=== PATIENT | female | born 1975 | race Caucasian/White ===

== ENCOUNTER → 2024-05-24 06:51 | Outpatient (REF) | payer OTHER, SELFPAY | LOC: HWWDC 06:51 | PROVIDERS: ATTENDING PHYSICIAN Internal Medicine; REFERRING PHYSICIAN Obstetrics & Gynecology | DX: D25.9 Leiomyoma of uterus, unspecified (principal); Z12.31 Encounter for screening mammogram for malignant neoplasm of breast | CPT/HCPCS: 77063; 77067 ==

== ENCOUNTER → 2024-06-04 14:41 | Outpatient (REF) | payer OTHER, SELFPAY | LOC: HWRAD 14:41 | PROVIDERS: ATTENDING PHYSICIAN Internal Medicine | DX: R10.11 Right upper quadrant pain (principal); R07.81 Pleurodynia | CPT/HCPCS: 76700 ==

== ENCOUNTER 2024-07-10 19:48 | Inpatient (IN) | payer OTHER, SELFPAY ==
[2024-07-10 14:00] VITALS: BP 158/95
[2024-07-10 14:32] LABS: % Basophils 0.6 % (0-2); % Eosinophils 0.6 % (0-6); % Immature Granulocytes 0.3 % (0-0.5); % Lymphocytes 10.7 % (20.5-51.1); % Monocytes 7.7 % (1.7-9.3); % Neutrophils 80.1 % (42.2-75.2); Absolute Lymphocytes 0.8 10^3/uL (1.2-3.4); Absolute Monocytes 0.6 10^3/uL (0.1-0.6); Absolute Neutrophils 5.7 10^3/uL (1.4-6.5); Hematocrit 40.6 % (37.0-47.0); Hemoglobin 14.2 g/dL (12.0-16.0); Mean Corpuscular Hgb 31.2 pg (27.0-31.0); Mean Corpuscular Volume 89.2 fL (81.0-99.0); Mean Platelet Volume 11.1 fL (7.4-10.4); Nucleated Red Blood Cells % 0 %; Platelet Count 236 10^3/uL (130-400); Red Blood Cell Count 4.55 10^6/uL (4.20-5.40); Red Cell Dist. Width 14.4 % (11.5-14.5); White Blood Cell Count 7.1 10^3/uL (4.8-10.8)
[2024-07-10 14:47] LABS: Albumin 4.1 g/dl (3.5-5.0); Alkaline Phosphatase 233 U/L (38-126); Blood Urea Nitrogen 10 mg/dl (7-17); Carbon Dioxide 26 mmol/L (22-30); Chloride 100 mmol/L (98-107); Glucose 147 mg/dl (70-99); Lipase 33 U/L (23-300); Potassium 3.3 mmol/L (3.5-5.1); Sodium 136 mmol/L (135-145); Total Bilirubin 12.2 mg/dl (0.2-1.3); Total Protein 7.9 g/dl (6.3-8.2); eGFR > 60.00
[2024-07-10 14:59] LABS: HCG, Serum Qualitative Screen Negative
[2024-07-10 15:12] LABS: ALT (SGPT) 1065 U/L (0-35)
[2024-07-10 15:39] LABS: AST (SGOT) 1416 U/L (14-36)
[2024-07-10 15:49] VITALS: BP 148/105
[2024-07-10 15:51] VITALS: BMI 29.0
[2024-07-10 16:00] VITALS: BP 142/102
--- NOTE | 2024-07-10 16:00 | ED.GENMED ---
History of Present Illness
General
Chief Complaint: Abdominal Symptoms
Time Seen by Provider: 07/10/24 15:48
History of Present Illness
History of Present Illness:
Patient is a 49-year-old woman presenting to the emergency department with abdominal pain and jaundice. Patient states that about a month ago she developed right upper quadrant pain and had ultrasound that was normal. Since then she has been
having ongoing abdominal pain nausea occasional vomiting. She has had significantly decreased p.o. with associated belching. She notes that for the past few days her urine has been darker. This morning she woke up and she noticed that her eyes
were jaundice and her skin was slightly jaundiced as well. Patient does state that about 2 weeks ago she had a head cold and was taking Tylenol with pseudoephedrine 2 pills every 6 hours. She then transition to Advil cold sinus. A few days ago
she went to her primary care doctor with ongoing dizziness nausea who prescribed her Zofran as well as Antivert however patient did not take any medications. She denies any recent travel antibiotics or other medications. No history of IV drug use.
No history of abnormal LFTs.
Past History
Past History
ED Past Medical History: Hypothyroidism
ED Past Surgical History: None
Social History
Tobacco: Non-smoker
Alcohol: None
Drug: None
Personal:
Living: with family
Employment: Employed
Family History
Family History: Other (Grandmother with [facility] in her late 50s dad with hypertension)
Phy Exam
Physical Exam
Physical Exam:
GENERAL: in no acute distress, jaundiced
HEENT: normocephalic, extraocular movements intact, scleral icterus, moist oral mucosa
NECK: normal inspection
RESPIRATORY: no respiratory distress, clear to auscultation bilaterally
CARDIOVASCULAR: regular rate and rhythm
ABDOMEN/: soft, non-distended, right upper quadrant tenderness to palpation, no rebound or guarding
EXTREMITIES: non-tender, no edema/swelling
NEUROLOGIC: awake and alert, moves all extremities
SKIN: warm
Course
Orders/Labs/Results
Orders:
Orders
07/10/24 14:04
Test Result ONCE
07/10/24 14:13
Acetaminophen Urgent
Comment: ADD ON
Complete Blood Count/With Diff Urgent
Comprehensive Metabolic Panel Urgent
Direct Bilirubin Urgent
Comment: ADD ON
HCG, Serum Qualitative Screen Urgent
Comment: Notify provider if positive test present
Lipase Urgent
07/10/24 15:48
Add On- LAB Urgent
Tests Added?: direct billirubin
07/10/24 16:00
Add On- LAB Urgent
Tests Added?: tylenol level, hepatitis panel
CT Abd/pelvis W Iv Cont Urgent
Comment:
Reason For Exam: abnormal lft, RUQ pain
07/10/24 16:06
Urinalysis Reflex To Culture Urgent
Date Specimen was Collected: 07/10/24
Time Specimen was Collected: 16:05
Urine Microscopic Reflex Cult Urgent
Urine Culture Urgent
[place] Source: U
Specimen Description:
Date Specimen was Collected: 07/10/24
Time Specimen was Collected: 16:05
07/10/24 18:01
Ondansetron Injectable [Zofran] 4 mg .ROUTE .STK-MED ONE
07/10/24 18:03
Ondansetron Injectable [Zofran] 4 mg IV NOW STA
Abnormal Lab Results
07/10/24 07/10/24
14:13 16:06
MCH 31.2 H pg
(27.0-31.0)
MPV 11.1 H fL
(7.4-10.4)
Absolute Lymphs (auto) 0.8 L 10^3/uL
(1.2-3.4)
Neutrophils % 80.1 H %
(42.2-75.2)
Lymphocytes % 10.7 L %
(20.5-51.1)
Potassium 3.3 L mmol/L
(3.5-5.1)
Creatinine 0.5 L mg/dL
(0.6-1.0)
Glucose 147 H mg/dl
(70-99)
Total Bilirubin 12.2 H mg/dl
(0.2-1.3)
AST 1416 H* U/L
(14-36)
ALT 1065 H* U/L
(0-35)
Alkaline Phosphatase 233 H U/L
(38-126)
Urine Ketones 1+ A
(Negative)
Ur Occult Blood Reflex 2+ A
(Negative)
Urine Nitrite (Reflex) Positive A
(Negative)
Urine Bilirubin 3+ A
(Negative)
Urine Urobilinogen 3+ A
(Neg - 1+)
Leukocyte Esterase Rfl Trace A
(Negative)
Urine RBC 3-6 A /HPF
(0-2)
Urine Bacteria (Reflex) Many A
(Negative)
07/10/24 14:13
07/10/24 14:13
Vital Signs
Initial and Last Documented VS:
Initial Vital Signs
Temp Pulse Resp BP Pulse Ox
97.9 F 117 18 158/95 97
07/10/24 14:00 07/10/24 14:00 07/10/24 14:00 07/10/24 14:00 07/10/24 14:00
Last Documented Vital Signs
Temp Pulse Resp BP Pulse Ox
97.9 F 117 18 140/99 99
07/10/24 14:00 07/10/24 14:00 07/10/24 14:00 07/10/24 18:00 07/10/24 18:00
MDM/Problems Addressed
Differential Diagnosis Includes:
Patient is a 49-year-old woman presenting to the emergency department with abdominal pain nausea and new jaundice. Vitals unremarkable on exam patient is jaundice with right upper quadrant abdominal pain. Concern for obstructive processes causing
the jaundice versus Tylenol toxicity. Blood work obtained prior to elevation does show significant transaminitis as well as elevated total bilirubin. Will add on direct bilirubin, Tylenol level, hepatitis panel. I did review prior ultrasound on
June 04 which was unremarkable. Given that the ultrasound was normal we will proceed with CT scan.
*Critical Care Note
Total Time (30-74mins, 75-104mins- exclusive of procedures): Not Applicable
Update Note
Update Note:
Multiple hours later add on labs have not been back. I did call lab which states they have been working on it. CT scan with no acute findings. Discussed with hospitalist who accepted patient to their service pending add on labs
ED Attending Note
-
Portions of this chart may have been created with voice recognition software.� Occasional wrong word or��sound alike� substitutions may have occurred due to the inherent limitations of voice recognition software.
Discharge Plan
Departure
Patient Disposition: Admit
Date of Disposition: 07/10/24
Time of Disposition: 19:00
Presentation/result/management discussed w/ accepting MD/DO: Hospitalist
Discharge Problem:
Transaminitis, Jaundice
Prescriptions:
No Action
levothyroxine 112 MCG tablet
112 mcg PO DAILY AT 0700
hydrocodone-acetaminophen 1 TABLET tablet
1 - 2 tab PO Q4HPRN PRN (Reason: pain) Qty: 20 0RF
Referrals:
Steffanie Moore MD [Primary Care Provider] -
Interventions
Interventions:
*Risk Screen - Suicide Last Done: 07/10/24 15:52
*General Assessment Last Done: 07/10/24 15:52
*Neglect/Abuse Screening Last Done: 07/10/24 15:52
ED- Fall Risk Assessment Last Done: 07/10/24 15:52
*ED COVID-19 Vaccine History Last Done: 07/10/24 14:03
UG-Cocqfr-Fohztmnrdv Assessment Last Done: 07/10/24 15:52
Discharge Date and Time
Print Language: ANGUILLAN
[2024-07-10 16:23] LABS: Urine Albumin Trace (Neg - Trace); Urine Bilirubin 3+ (Negative); Urine Character Clear (Clear); Urine Color Amber; Urine Glucose Negative (Negative); Urine Ketone 1+ (Negative); Urine Leukocyte Trace (Negative); Urine Nitrite Positive (Negative); Urine Occult Blood 2+ (Negative); Urine Specific Gravity 1.025 (<1.030); Urine Urobilinogen 3+ (Neg - 1+)
[2024-07-10 16:31] LABS: Urine Mucus Moderate; Urine Squamous Cell 16-20 /LPF (Few)
[2024-07-10 16:32] LABS: Urine Urothelial Cell 0-2 /LPF (FEW)
[2024-07-10 16:33] LABS: Urine Bacteria Many (Negative)
[2024-07-10 18:00] VITALS: BP 140/99
[2024-07-10] MEDS: ZOFRAN 4 MG IV (18:03)
[2024-07-10 19:00] VITALS: BP 132/84
[2024-07-10 19:01] LABS: Acetaminophen < 10 ug/ml (10-30); Direct Bilirubin 9.5 mg/dl (0.0-0.4)
--- NOTE | 2024-07-10 19:21 | HPS.HSE ---
Family Physician
-
Family Physician: Steffanie Moore
Chief Complaint
-
Jaundiced nausea
History of Present Illness
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
department with elevated liver enzymes and nausea.
Patient reported that she was having headache and abdominal symptoms about 3 weeks ago. She started taking Tylenol cold and sinus hxtztk-zwq-rteyg every 5 hours for at least 5 days. She then developed severe nausea without vomiting and then
stopped taking the Tylenol. She started taking ibuprofen cold which appeared to help her symptoms. Then she appeared to develop some reflux symptoms. Despite this she continued to have right upper quadrant abdominal discomfort and nausea. She was
seen by outpatient physician for the right upper quadrant discomfort and had a ultrasound which was negative.
Following that patient's family started noticing that she had a discoloration to her skin denies and requested that she go to the emergency department for evaluation. Patient tells me that her last use of Tylenol was over 5 days ago and probably
last week. She denies any other medications. She denies alcohol use. She denies any history of gallstones. She has no recent travels or sick contacts.
In the emergency department she was afebrile, she was hemodynamically stable and in no acute distress but anxious. Blood pressure was 140/90 pulse 117 respiratory rate 18. CBC was normal. Electrolytes and BUN/creatinine were within the normal
range. Total bilirubin was 12.5 direct 9.5 AST 1400 AST [address] of the abdomen and pelvis shows no acute findings.
Medical History
Past Medical History
Past Medical History: Reports Hypothyroidism
Past Surgical History: Reports Appendectomy
Social History
Tobacco: Non-smoker
Alcohol: None
Drug: None
Personal: Partner
Living: With Family
Employment: Employed
Family History
Family History: Not pertinent
Allergies / Home Medications
Allergies reflects when Allergies were last updated in [employer].
Home Medications with original date entered in [employer]
Allergy/Medication List:
Allergies
Allergy/AdvReac Type Severity Reaction Status Date / Time
Sulfa (Sulfonamide Allergy Unknown Verified 09/15/18 23:16
Antibiotics)
seasonal allergies Allergy Mild Unknown Uncoded 09/16/18 04:35
Home Medications
levothyroxine 88 mcg tablet 88 mcg PO DAILY 07/10/24
Review of Systems
-
History Source: Patient
Constitutional: Reports No Symptoms
EENT: Reports No Symptoms
Respiratory: Reports No Symptoms
Cardiac: Reports No Symptoms
Abdomen/GI: Reports Abdominal Pain and Nausea
: Reports No Symptoms
Musculoskeletal: Reports No Symptoms
Skin: Reports No Symptoms
Neurological: Reports No Symptoms
Endocrine: Reports No Symptoms
Hematologic/Lymphatic: Reports No Symptoms
Psych: Reports No Symptoms
Physical Exam
Vital Signs
Vital Signs
Temp Pulse Resp BP Pulse Ox
97.9 F 117 18 140/99 99
07/10/24 14:00 07/10/24 14:00 07/10/24 14:00 07/10/24 18:00 07/10/24 18:00
Physical Exam
General: Well Developed, Well Nourished, No Apparent Distress and Comfortable
HEENT: NormoCephalic, Anicteric, Moist mucous membranes and Atraumatic
Respiratory: Clear
Cardiac: S1/S2 and Tachycardia
GI: Soft, Non Distended and Normal Bowel Sounds
Rectal: Deferred by Provider
Genito-urinary: Deferred by me
Musculoskeletal: No Clubbing, No Cyanosis and No Edema
Skin: Warm
Neuro: AO x 3
Hematologic/Lymphatic: No Lymphadenopathy
Psych: Anxious
Laboratory Results
-
12/25/24 14:13
07/10/24 14:13
Laboratory Results
Total Bilirubin 12.2 mg/dl (0.2-1.3) H 07/10/24 14:13
AST 1416 U/L (14-36) H* 07/10/24 14:13
ALT 1065 U/L (0-35) H* 07/10/24 14:13
Alkaline Phosphatase 233 U/L (38-126) H 07/10/24 14:13
Lipase 33 U/L (23-300) 07/10/24 14:13
Data Reviewed
-
CT Scan: Report Reviewed by me
Lab Data: Labs Reviewed by me
Old Records: Reviewed
Impression/Plan
-
IMPRESSION:
49 F w/ h/o hypothyroidism presenting to ED with acute episode of painless jaundice and transaminitis. Recent history of heavy tylenol use but stopped taking tylenol 1 week ago and levels are negative today. No ETOH, no gallstones. CTAP shows no
abnormalities. No evidence of cirrhosis. No other meds.
PLAN:
1. Liver injury - suspect subacute tylenol injury versus coincidental development of viral or autoimmune hepatitis.
- admit to med/surg
- check acute viral hepatitis
- check JCARLOS, anti-mitochondrial ab, ESR
- check pt/inr and ammonia and trend lft
- GI consultation
2. Hypothyroid
- continue levothyroxine
DVT PPX - lovenox
Code Status - Full Code
[2024-07-10 22:00] VITALS: BMI 27.8
[2024-07-10 23:15] VITALS: BP 149/88
[2024-07-10] MEDS: MOTRIN 400 MG PO (23:44)
--- NOTE | 2024-07-11 00:05 | PTCARENOTE ---
Patient arrived to unit from ED via stretcher. Patient safely ambulated into room 317-1 on . Patient AAOx3 and able to make needs known. Patient anxious about current health conditions, 1:1 emotional support provided. Oriented to unit. Call
sanders within reach. Plan of care ongoing.
[2024-07-11] MEDS: SYNTHROID 88 MCG PO (05:41)
[2024-07-11 06:25] LABS: Ammonia 12 umol/L (9-30)
[2024-07-11 06:33] LABS: Hematocrit 39.9 % (37.0-47.0); Hemoglobin 13.5 g/dL (12.0-16.0); Mean Corp Hgb Conc. 33.8 g/dL (33.0-37.0); Mean Corpuscular Hgb 30.9 pg (27.0-31.0); Mean Corpuscular Volume 91.3 fL (81.0-99.0); Mean Platelet Volume 11.1 fL (7.4-10.4); Platelet Count 246 10^3/uL (130-400); Red Blood Cell Count 4.37 10^6/uL (4.20-5.40); Red Cell Dist. Width 14.7 % (11.5-14.5); White Blood Cell Count 7.8 10^3/uL (4.8-10.8)
[2024-07-11 06:45] LABS: INR 1.21; PT 15.8 Sec (11.4-14.6)
[2024-07-11 07:26] LABS: ALT (SGPT) 1013 U/L (0-35); AST (SGOT) 1430 U/L (14-36); Albumin 3.7 g/dl (3.5-5.0); Alkaline Phosphatase 229 U/L (38-126); Blood Urea Nitrogen 14 mg/dl (7-17); Calcium 8.9 mg/dl (8.4-10.2); Carbon Dioxide 26 mmol/L (22-30); Chloride 101 mmol/L (98-107); Direct Bilirubin 10.9 mg/dl (0.0-0.4); Estimated Creatinine Clearance 104 ml/min; Glucose 81 mg/dl (70-99); HDL Cholesterol 13 mg/dl; LDL Cholesterol, Calculated 135 mg/dl; Magnesium 1.9 mg/dl (1.6-2.3); Potassium 3.6 mmol/L (3.5-5.1); Sodium 137 mmol/L (135-145); Total Bilirubin 12.9 mg/dl (0.2-1.3); Total Cholesterol 183 mg/dl (50-199); Total Protein 7.6 g/dl (6.3-8.2); Triglyceride 176 mg/dl (10-149); Very Low Density Lipoprotein 35 mg/dl (0-30); eGFR > 60.00
[2024-07-11 07:43] VITALS: BP 126/78
[2024-07-11 08:02] LABS: Erythrocyte Sed Rate 23 mm/hour (0-20)
--- NOTE | 2024-07-11 08:37 | CON.GI ---
Addendum entered and electronically signed by Simin Hunter MD 07/11/24 17:13:
I personally performed a history and physical exam of the patient and discussed management with the resident. I reviewed the resident's note and agree with the documented findings and plan of care HPI/CC.
Pt is a 49 y/o with a hx of Hypothyroidism and chronic right upper quadrant discomfort. She started taking nahg-gro-mojjdyr acetaminophen and Advil cold approximately a week ago. She also had a URI. She started noticing jaundice and was sent to
the emergency room. Labs drawn showed severe hepatitis. She is not confused and does not have a history of hepatitis in the past. She does not drink alcohol. CT scan negative for biliary obstruction
abd: mild ruq d/c
impression:
ruq tenderness
elevated transaminases
hx of acetominophen with undetectable level
plan:
follow lfts/INR (INR 1.2 now)
check labs for etiology of acute hepatitis as below
monitor mental status
if no etiology and no improvement will need liver biopsy
Original Note:
Consultation
-
Date/Time Consultation Requested: 07/11/2024 04: 41
Date/Time Consultation Performed: 07/11/2024 09: 30
Requesting Provider: Wade Christianson MD
Performing Provider: Simin Hunter MD
Reason for Consultation: acute liver injury w/o hepatic failure
Medical History
Chief Complaint / HPI
Chief Complaint: Jaundice
History of Present Illness:
49-year-old female with PMH of hypothyroidism s/p thyroidectomy on levothyroxine, intermittent dizziness and vertigo who presented to ED on 07/10 with RUQ discomfort, painless jaundice and elevated LFTs. Patient reports that she had an RUQ
discomfort about a month and a half ago and was evaluated with abdominal ultrasound with her PCP, which came back negative. Has symptoms was suspected to be musculoskeletal in origin and she was advised to use heat/ice with lidocaine as needed and
was also asked to take Tylenol/ibuprofen if needed. She also received flu vaccine during that visit. About 2 weeks ago, he developed a URI and later developed persistent nausea, dizziness potentially related to her history of vertigo during
weather changes. Her symptoms progressed to severe cough, nasal congestion, headaches for which she started taking pseudoephedrine/acetaminophen 2 pills every 6 hours for about 5 days and then switch to Advil cold and sinus which she took last
about a week ago. Did not take these 2 medications at the same time and denies taking any other qfht-ljf-qvlammw medications, or supplements. She reports that her boyfriend came down with cold around this time. She continues to have abdominal
discomfort with occasional nausea and vomiting. On 07/05, patient was seen by her PCP for vertigo and was prescribed ondansetron and meclizine which she did not take. This morning, her daughter noticed that she is slightly jaundiced weakness
assisted her visit to the ED. She denies any use of other OTC medications, supplements, history of IV drug use, mushroom exposure, alcohol use, muscle aches, sick contacts, recent travels, fever, chills.
Past Medical History
Past Medical History: Hypothyroidism
Past Surgical History: Appendectomy
Social History
Tobacco: Non-Smoker
Alcohol: None
Drug: None
Living: With Family
Employment: Employed
Family History
Family History: Reviewed & Not Pertinent
Allergies / Home Medications
Allergy/AdvReac Type Severity Reaction Status Date / Time
pollen extracts Allergy SEASONAL Verified 07/10/24 23:10
ALLERGIES
Sulfa (Sulfonamide Allergy Unknown Verified 09/15/18 23:16
Antibiotics)
�Medication �Instructions �Recorded
levothyroxine 88 mcg tablet 88 mcg PO DAILY 07/10/24
Review of Systems
-
History Source: Patient and Family
Constitutional: Reports No Symptoms
EENT: Reports No Symptoms and Other
Respiratory: Reports No Symptoms
Cardiac: Reports No Symptoms
Abdomen/GI: Reports Other (RUQ abdominal discomfort)
: Reports No Symptoms
Skin: Reports Other (Jaundiced)
Vital Signs
Temp Pulse Resp BP Pulse Ox
97.9 F 83 16 126/78 97
07/11/24 07:43 07/11/24 07:43 07/11/24 07:43 07/11/24 07:43 07/11/24 07:43
Physical Exam
Exam
General: No Apparent Distress and Comfortable
Respiratory: Clear and Non Labored Respirations
Cardiac: S1/S2 and Regular Rhythm
GI: Soft, Non Tender, Non Distended, Normal Bowel Sounds and Other (RUQ discomfort)
Genito-urinary: No Costovertebral Tender
Skin: Warm and Other (Jaundiced)
Neuro: Awake and AO x 3
Hematologic/Lymphatic: No Lymphadenopathy
Psych: Calm
Results
WBC 7.8 10^3/uL (4.8-10.8) 07/11/24 06:01
Hgb 13.5 g/dL (12.0-16.0) 07/11/24 06:01
Hct 39.9 % (37.0-47.0) 07/11/24 06:01
MCV 91.3 fL (81.0-99.0) 07/11/24 06:01
Plt Count 246 10^3/uL (130-400) 07/11/24 06:01
Absolute Neuts (auto) 5.7 10^3/uL (1.4-6.5) 07/10/24 14:13
PT 15.8 Sec (11.4-14.6) H 07/11/24 06:01
INR 1.21 07/11/24 06:01
Sodium 137 mmol/L (135-145) 07/11/24 06:01
Potassium 3.6 mmol/L (3.5-5.1) 07/11/24 06:01
Chloride 101 mmol/L (98-107) 07/11/24 06:01
Carbon Dioxide 26 mmol/L (22-30) 07/11/24 06:01
BUN 14 mg/dl (7-17) 07/11/24 06:01
Creatinine 0.5 mg/dL (0.6-1.0) L 07/11/24 06:01
Calcium 8.9 mg/dl (8.4-10.2) 07/11/24 06:01
Total Bilirubin 12.9 mg/dl (0.2-1.3) H 07/11/24 06:01
AST 1430 U/L (14-36) H* 07/11/24 06:01
ALT 1013 U/L (0-35) H* 07/11/24 06:01
Alkaline Phosphatase 229 U/L (38-126) H 07/11/24 06:01
Lipase 33 U/L (23-300) 07/10/24 14:13
Assessment / Plan
-
Impression: 49-year-old female with PMH of Jose Juan's thyroidism with hypothyroidism (on levothyroxine), who presented to the ED on 07/10 with transaminitis, RUQ discomfort and painless jaundice.
Assessment/plan:
#Acute liver injury
�R Value 16, reflecting hepatocellular injury.
-Suspect acute viral hepatitis vs autoimmune hepatitis given her history of autoimmune diseases. Drug-induced hepatitis, choledocholithiasis less likely.
-CT abdomen/pelvis with IV contrast with no acute findings.
-Check JCARLOS Ab, antimitochondrial antibody, F�actin IgG, CMV, EBV, hepatitis panel, hepatitis and VZV antibodies.
-Trend PT/INR, LFTs every 12 hours.
-Follow direct bilirubin.
-Check celiac panel.
-Urine toxicology screen negative, acetaminophen level <10.
-CRP and ESR slightly elevated, ammonia levels normal.
-Regular diet.
#Hypothyroidism
-Check TSH levels
-Continue levothyroxine
Diagnostic data:
Diagnostic Image Results:
CT abdomen/pelvis with IV contrast 07/10/2024: No acute findings in the abdomen or pelvis.
Data Reviewed
-
CT Scan: Image Personally Visualized and interpreted, Report Reviewed by me, Discussed with Physician and Discussed with Patient
Ultrasound: Report Reviewed by me and Discussed with Physician
Old Records: Reviewed
-
-
Thank you for consultation and allowing me to participate in the patient's care. Please call the fitness consultant GI physician during the after hours with any questions or concerns.
[2024-07-11 10:32] LABS: Hepatitis B Surface Antigen Negative (Negative)
--- NOTE | 2024-07-11 10:46 | W.PN.HOSP.TC ---
Today's Communication/Plan
-
Awaiting lab results
GI consult pending
Can eat and drink.
Assessment / Plan
Assessment / Plan
49 woman with acute episode of painless jaundice and transaminitis. Recent history of heavy tylenol and ibuprofen use but stopped taking tylenol 1 week ago and levels are negative at admit. No ETOH, no gallstones. No evidence of cirrhosis. No
other meds.
PLAN:
1. Liver injury - suspect subacute tylenol injury +/- coincidental development of viral or autoimmune hepatitis.
- stay in med/surg
- acute viral hepatitis panel pending
- JCARLOS, anti-mitochondrial ab, ESR pending
- trend LFTs
- GI consultation
2. Hypothyroidism, Free T3/4 at ok levels
- continue levothyroxine
DVT PPX - lovenox
Code Status - Full Code
Anticipated Discharge: > 48 hours
Subjective/Interval History
-
Date of Service: July 11, 2024
Feels well. No complaints.
Objective Data
-
Labs:
Laboratory Results
07/11/24
06:01
WBC 7.8
Hgb 13.5
Hct 39.9
Plt Count 246
PT 15.8 H
INR 1.21
Sodium 137
Potassium 3.6
Chloride 101
Carbon Dioxide 26
BUN 14
Creatinine 0.5 L
Glucose 81
Calcium 8.9
Total Bilirubin 12.9 H
AST 1430 H*
ALT 1013 H*
Alkaline Phosphatase 229 H
Vital Signs:
Vital Signs
Temp Pulse Resp BP Pulse Ox
97.9 F 83 16 126/78 97
07/11/24 07:43 07/11/24 07:43 07/11/24 07:43 07/11/24 07:43 07/11/24 07:43
Review of Systems
-
History Source: Patient
All other systems: Reviewed and negative
Physical Exam
-
General: Well Developed, Well Nourished, No Apparent Distress and Comfortable
HEENT: Normocephalic, Moist Mucous Membranes, Nose Appears Normal and Ears Appear Normal
Respiratory: Clear to Auscultation
Cardiac: Regular Rhythm and S1/S2
GI: Soft, Nontender and Nondistended
Musculoskeletal: No Clubbing, No Cyanosis and No Edema
Skin: Warm, Dry and Jaundice
Neuro: Awake, Alert, Oriented and AO x 3
Psych: Calm
Data Reviewed
-
Labs: Labs Reviewed by me
[2024-07-11 10:48] LABS: Amphetamines Negative (Negative); Barbiturates Negative (Negative); Benzodiazepines Negative (Negative); Buprenorphine Negative (Negative); Cocaine Negative (Negative); Marijuana Negative (Negative); Methadone Negative (Negative); Methamphetamines Negative (Negative); Opiates Negative (Negative); Phencyclidine Negative (Negative); Tricyclic Antidepressants Negative (Negative)
[2024-07-11 10:49] LABS: Hepatitis B Surface Antibody Negative; Hepatitis C Antibody Negative (Negative)
[2024-07-11 12:05] LABS: TSH Reflex To Free T4 0.05 uIU/ml (0.47-4.68)
[2024-07-11 13:18] LABS: Free T4 3.03 ng/dl (0.78-2.19)
[2024-07-11 13:24] VITALS: BMI 27.8
[2024-07-11 15:14] LABS: INR 1.24; PT 16.1 Sec (11.4-14.6)
[2024-07-11 15:18] LABS: Albumin 3.6 g/dl (3.5-5.0); Alkaline Phosphatase 212 U/L (38-126); Direct Bilirubin 11.4 mg/dl (0.0-0.4); Total Bilirubin 13.6 mg/dl (0.2-1.3); Total Protein 7.3 g/dl (6.3-8.2)
[2024-07-11 15:23] VITALS: BP 134/82
[2024-07-11 15:32] LABS: ALT (SGPT) 938 U/L (0-35); AST (SGOT) 1351 U/L (14-36)
[2024-07-11] MEDS: LOVENOX 40 MG SC (17:22)
[2024-07-11 18:42] LABS: Hepatitis A IgM Antibody Negative (Negative); Hepatitis B Core Ab, IgM Negative (Negative)
[2024-07-11] MEDS: MOTRIN 400 MG PO (20:14)
[2024-07-11 23:00] VITALS: BP 124/70
[2024-07-12] MEDS: SYNTHROID 88 MCG PO (05:38)
[2024-07-12 07:00] VITALS: BP 121/75
--- NOTE | 2024-07-12 07:37 | W.PN.GI.CBS2 ---
Addendum entered and electronically signed by Luis F Foley MD 07/12/24 17:44:
I saw and examined the patient, and discussed management with the resident. I reviewed the resident's note and agree with the documented findings and plan of care.
Comment:
Her LFT is trending down, although gradually. Serologic work ups are pending. Will follow up with results and continue monitoring LFT.
Original Note:
Today's Communication / Plan
-
Follow LFTs, INR.
Follow serologic and neurologic assays.
Assessment / Plan
-
Impression: 49-year-old female with PMH of hypothyroidism s/p thyroidectomy on levothyroxine, intermittent dizziness and vertigo who presented to ED on 07/10 with RUQ discomfort, painless jaundice and elevated LFTs. Patient reports that she had
an RUQ discomfort about a month and a half ago and was evaluated with abdominal ultrasound with her PCP, which came back negative. Has symptoms was suspected to be musculoskeletal in origin and she was advised to use heat/ice with lidocaine as
needed and was also asked to take Tylenol/ibuprofen if needed. She also received flu vaccine during that visit. About 2 weeks ago, he developed a URI and later developed persistent nausea, dizziness potentially related to her history of vertigo
during weather changes. Her symptoms progressed to severe cough, nasal congestion, headaches for which she started taking pseudoephedrine/acetaminophen 2 pills every 6 hours for about 5 days and then switch to Advil cold and sinus which she took
last about a week ago. Did not take these 2 medications at the same time and denies taking any other llhi-nzr-vdzakup medications, or supplements. She reports that her boyfriend came down with cold around this time. She continues to have
abdominal discomfort with occasional nausea and vomiting. On 07/05, patient was seen by her PCP for vertigo and was prescribed ondansetron and meclizine which she did not take. This morning, her daughter noticed that she is slightly jaundiced
weakness assisted her visit to the ED. She denies any use of other OTC medications, supplements, history of IV drug use, mushroom exposure, alcohol use, muscle aches, sick contacts, recent travels, fever, chills.
Assessment/plan:
#Acute liver injury-hepatocellular injury
-Etiology most likely autoimmune vs acute viral hepatitis.
-Serologies for hep A, B, C all negative.
-Serologies for HSV, VZV, CMV, EBV pending.
-JCARLOS, AMA, F-actin IgG and celiac panel pending
-Follow LFTs, INR.
-Liver biopsy if etiology remains unclear.
-Regular diet.
#Hypothyroidism
-Check TSH levels
-Continue levothyroxine
Diagnostic data:
Diagnostic Image Results:
CT abdomen/pelvis with IV contrast 07/10/2024: No acute findings in the abdomen or pelvis.
Subjective
Subjective
Date of Service: July 12, 2024
I have seen and evaluated patient. Patient reports no abdominal pain, chest pain or shortness of breath. Reports that she still has jaundice as yesterday and asked if there is acute to her disease.
Objective
Data Reviewed
Laboratory Data:
Laboratory Results
PT Cancelled 07/11/24 18:00
INR Cancelled 07/11/24 18:00
Magnesium 1.9 mg/dl (1.6-2.3) 07/11/24 06:01
Total Bilirubin Cancelled 07/11/24 18:00
AST Cancelled 07/11/24 18:00
ALT Cancelled 07/11/24 18:00
Alkaline Phosphatase Cancelled 07/11/24 18:00
Lipase 33 U/L (23-300) 07/10/24 14:13
Vital Signs and I&O:
Vital Signs
Temp Pulse Resp BP Pulse Ox
97.9 F 64 18 121/75 95
07/12/24 07:00 07/12/24 07:00 07/12/24 07:00 07/12/24 07:00 07/12/24 07:00
I&O
07/11/24 07/12/24 07/13/24
06:59 06:59 06:59
Intake Total 480 / 480
Balance 480 / 480
Physical Exam
Physical Exam
Cardiology: S1 and S2
GI: Soft, Non Distended and Non Tender
[2024-07-12 08:34] LABS: Hematocrit 39.2 % (37.0-47.0); Hemoglobin 13.2 g/dL (12.0-16.0); Mean Corp Hgb Conc. 33.7 g/dL (33.0-37.0); Mean Corpuscular Hgb 30.7 pg (27.0-31.0); Mean Corpuscular Volume 91.2 fL (81.0-99.0); Red Cell Dist. Width 15.4 % (11.5-14.5); White Blood Cell Count 5.5 10^3/uL (4.8-10.8)
[2024-07-12 08:37] LABS: Albumin 3.6 g/dl (3.5-5.0); Alkaline Phosphatase 207 U/L (38-126); Blood Urea Nitrogen 14 mg/dl (7-17); Calcium 8.6 mg/dl (8.4-10.2); Carbon Dioxide 27 mmol/L (22-30); Chloride 100 mmol/L (98-107); Direct Bilirubin 11.9 mg/dl (0.0-0.4); Estimated Creatinine Clearance 104 ml/min; Glucose 89 mg/dl (70-99); Potassium 3.5 mmol/L (3.5-5.1); Sodium 136 mmol/L (135-145); Total Bilirubin 14.4 mg/dl (0.2-1.3); Total Protein 7.6 g/dl (6.3-8.2); eGFR > 60.00
[2024-07-12 08:39] LABS: IgA 222 mg/dl (70-400)
[2024-07-12 08:50] LABS: ALT (SGPT) 951 U/L (0-35); AST (SGOT) 1349 U/L (14-36)
[2024-07-12 09:03] LABS: INR 1.12; PT 14.9 Sec (11.4-14.6)
--- NOTE | 2024-07-12 11:13 | W.PN.HOSP.TC ---
Today's Communication/Plan
-
Stop tylenol and ibuprofen products. Encourage po hydration.
Assessment / Plan
Assessment / Plan
49 woman with acute episode of painless jaundice and transaminitis. Recent history of heavy tylenol and ibuprofen use but stopped taking tylenol 1 week ago and tylenol levels were negative at admit. No ETOH, no gallstones. No evidence of
cirrhosis. No other meds.
PLAN:
1. Liver injury - suspect subacute tylenol injury +/- coincidental development of viral or autoimmune hepatitis.
- stay in med/surg
- acute viral hepatitis panel pending
- JCARLOS, anti-mitochondrial ab, ESR pending
- trend LFTs
- stop all tylenol and ibuprofen products
- GI consultation
Many tests pending
LFTs not worse, slowly coming down
2. Hypothyroidism, Free T3/4 at ok levels
- continue levothyroxine
DVT PPX - lovenox
Code Status - Full Code
Anticipated Discharge: > 48 hours
Subjective/Interval History
-
Date of Service: July 12, 2024
Feels ok. No new problems.
Objective Data
-
Labs:
Laboratory Results
07/12/24
07:08
WBC 5.5
Hgb 13.2
Hct 39.2
Plt Count
PT 14.9 H
INR 1.12
Sodium 136
Potassium 3.5
Chloride 100
Carbon Dioxide 27
BUN 14
Creatinine 0.5 L
Glucose 89
Calcium 8.6
Total Bilirubin 14.4 H
AST 1349 H*
ALT 951 H*
Alkaline Phosphatase 207 H
Vital Signs:
Vital Signs
Temp Pulse Resp BP Pulse Ox
97.9 F 64 18 121/75 95
07/12/24 07:00 07/12/24 07:00 07/12/24 07:00 07/12/24 07:00 07/12/24 07:00
I&O
07/11/24 07/12/24 07/13/24
06:59 06:59 06:59
Intake Total 480 / 480
Balance 480 / 480
Review of Systems
-
History Source: Patient
All other systems: Reviewed and negative
Physical Exam
-
General: Well Developed, Well Nourished, No Apparent Distress and Comfortable
HEENT: Normocephalic, Atraumatic, Moist Mucous Membranes, Nose Appears Normal and Ears Appear Normal
Respiratory: Clear to Auscultation
Cardiac: Regular Rhythm and S1/S2
GI: Soft, Nontender and Nondistended
Musculoskeletal: No Clubbing, No Cyanosis and No Edema
Skin: Warm, Dry and Jaundice
Neuro: Awake, Alert, Oriented and AO x 3
Psych: Calm
Data Reviewed
-
Labs: Labs Reviewed by me
[2024-07-12] MEDS: NSS 1000 IV ×2 (12:04→18:35)
--- NOTE | 2024-07-12 14:31 | CM ---
Met with patient and her significant other who was at bedside. She stated that she lives with him and their two children in a two story home with two steps to enter. Patient described herself as independent with all ADLs, personal care, dressing and
bathing. 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 She drives and can get to her appointments and does her own shopping.
Patient denied any DME in her home.
She has not had VN services.
Patient has never been to a SNF.
Patient has a prescription plan and uses, [facility] in [place] for all of her medications.
Patient's PCP is, Steffanie Moore.
Patient stated that physically she feels she is at baseline and will return home when medically stable.
Plan: Case management will continue to follow and assist with discharge planning. Home when cleared for discharge.
[2024-07-12 14:34] LABS: ANA, IgG Reflex to HEp-2 Detected (None Detected)
[2024-07-12 14:55] LABS: Mitochondrial M2 Ab, IgG 7.5 Units (0.0-24.9)
[2024-07-12 14:55] LABS: F-Actin Antibody IgG 45 Units (0-19)
[2024-07-12 15:00] VITALS: BP 129/80
--- NOTE | 2024-07-12 15:26 | PN.CDI ---
CDI
- -
CDI:
Physician Documentation Request
Admit Date: 07/10/24 19:48
Dear Doctor Huy,
07/11 RD notes and assessment state 'Consult for unintentional weight loss. pt meets ASPEN criteria for mild protein calorie malnutrition of acute illness with sudden weight loss prior to admission, sudden decreased intake < 75% for > 5 days. '
Based on the above information and your assessment, which of the following most accurately represents the patient's nutritional status?
Mild Malnutrition
Other (please specify)
[place] Criteria ([facility] Hospitalist 2017)
2 or more criteria must be present for either
non severe or severe malnutrition
Note that the criteria differs related to the
presence of an acute or chronic illness
Acute Illness Chronic Illness
Energy Intake Non Severe: <75% for >7 days Non Severe: <75% for >1 month
Severe: <50% for >5 days Severe: <75% for >1 month
Weight Loss Non Severe: 1-2% over 1 week Non Severe: 5% over 1 month
5% over 1 month 7.5% over 3 months
7.5% over 3 months 10% over 6 months
1 year N/A 20% over 1 year
Severe: >2% over 1 week Severe: >5% over 1 month
>5% over 1 month >7.5% over 3 months
>7.5% over 3 months >10% over 6 months
1 year N/A >20% over 1 year
Body Fat Non Severe: Mild Decrease Non Severe: Mild Loss
Severe: Moderate Decrease Severe: Severe Loss
Muscle Mass Non Severe: Mild Decrease Non Severe: Mild Loss
Severe: Moderate Decrease Severe: Severe Loss
Fluid Accumulation Non Severe: Mild Accumulation Non Severe: Mild Accumulation
Severe: Moderate to severe Severe: Moderate to severe
accumulation accumulation
Reduced Insurance Underwriting Assistant Strength Non Severe: N/A Non Severe: N/A
Severe: Measurably reduced Severe: Measurably reduced
Use of terms such as suspected, likely, concern for, or probable (associated with a specific diagnosis that is being evaluated, monitored, or treated as if it exists) are acceptable and can be coded in the inpatient setting, when documented at the
time of discharge.
Thank you,
Hedy Velazquez RN, BSN
CDI Specialist
tiger text
Please use your independent medical judgment in providing your response.
[2024-07-12 16:11] LABS: EBV-NA IgG >600.0 U/mL (0.0-21.9); EBV-VCA IgM Antibodies 10.9 U/mL (0.0-43.9)
[2024-07-12 16:13] LABS: CMV IgM Antibody <8.0 AU/mL (<=29.9)
[2024-07-12] MEDS: LOVENOX 40 MG SC (18:35)
[2024-07-12 23:00] VITALS: BP 146/92
[2024-07-13] MEDS: NSS 1000 IV (01:26)
[2024-07-13] MEDS: SYNTHROID 88 MCG PO (06:00)
[2024-07-13 07:00] VITALS: BP 141/87
[2024-07-13 08:12] LABS: Ammonia 14 umol/L (9-30)
[2024-07-13] MEDS: NSS IV (08:12)
[2024-07-13 08:57] LABS: Albumin 3.2 g/dl (3.5-5.0); Alkaline Phosphatase 173 U/L (38-126); Blood Urea Nitrogen 9 mg/dl (7-17); Calcium 8.3 mg/dl (8.4-10.2); Carbon Dioxide 22 mmol/L (22-30); Chloride 104 mmol/L (98-107); Estimated Creatinine Clearance 104 ml/min; Glucose 83 mg/dl (70-99); Potassium 3.3 mmol/L (3.5-5.1); Sodium 137 mmol/L (135-145); Total Bilirubin 15.4 mg/dl (0.2-1.3); Total Protein 6.9 g/dl (6.3-8.2); eGFR > 60.00
[2024-07-13 09:17] LABS: ALT (SGPT) 883 U/L (0-35); AST (SGOT) 1223 U/L (14-36)
[2024-07-13 09:21] LABS: Hematocrit 36.2 % (37.0-47.0); Hemoglobin 12.2 g/dL (12.0-16.0); Mean Corp Hgb Conc. 33.7 g/dL (33.0-37.0); Mean Corpuscular Hgb 30.7 pg (27.0-31.0); Red Blood Cell Count 3.98 10^6/uL (4.20-5.40); Red Cell Dist. Width 15.4 % (11.5-14.5); White Blood Cell Count 5.6 10^3/uL (4.8-10.8)
[2024-07-13 10:06] LABS: Mean Platelet Volume 10.8 fL (7.4-10.4); Platelet Count 200 10^3/uL (130-400)
--- NOTE | 2024-07-13 12:18 | W.PN.HOSP.TC ---
Today's Communication/Plan
-
Monitor LFTs
follow up autoimmune work up
reduce Synthroid
PO ativan prn anxiety
Assessment / Plan
Assessment / Plan
Physical Exam
General: Well Developed, Well Nourished, No Apparent Distress and Comfortable
HEENT: Normocephalic, Atraumatic, Moist Mucous Membranes
Respiratory: Clear to Auscultation
Cardiac: Regular Rhythm and S1/S2
GI: Soft, Nontender and Nondistended
Musculoskeletal: No Clubbing, No Cyanosis and No Edema
Skin: Warm, Dry and Jaundice
Neuro: AOx3
Psych: anxious
49 woman with acute episode of painless jaundice and transaminitis. Recent history of heavy tylenol and ibuprofen use but stopped taking tylenol 1 week ago and tylenol levels were negative at admit. No ETOH, no gallstones. No evidence of
cirrhosis. No other meds.
PLAN:
# Liver injury - unclear etiology possibly post-infectious vs viral vs drug induced liver injury vs autoimmune
- serology neg for hepatitis
- High EBV igG
- JCARLOS detected, anti-mitochondrial ab wnl, ESR appreciated mild elevation 23 (within expected range for age and gender)
- trend LFTs slowly improving
- stop all tylenol and ibuprofen products
- GI consultation appreciated
# Hypothyroidism
#Iatrogenic Hyperthyroidism
- TSH low, elevated T4
-home Synthroid reduced from 88 mcg to 75 mcg
DVT PPX - Lovenox
Code Status - Full Code
I spent a total of 45 minutes with the patient or on the floor. More than 50% of this time involved counseling and coordination of care.
Anticipated Discharge: 24 - 48 hours
Subjective/Interval History
-
Date of Service: July 13, 2024
Seen and examined at bedside. Seems anxious but no acute distress. Overall reports feeling well.
Objective Data
-
Labs:
Laboratory Results
07/13/24 07/13/24
06:53 07:56
WBC 5.6
Hgb 12.2
Hct 36.2 L
Plt Count 200
Sodium Cancelled 137
Potassium Cancelled 3.3 L
Chloride Cancelled 104
Carbon Dioxide Cancelled 22
BUN Cancelled 9
Creatinine Cancelled 0.5 L
Glucose Cancelled 83
Calcium Cancelled 8.3 L
Total Bilirubin Cancelled 15.4 H
AST Cancelled 1223 H*
ALT Cancelled 883 H*
Alkaline Phosphatase Cancelled 173 H
Vital Signs:
Vital Signs
Temp Pulse Resp BP Pulse Ox
97.7 F 72 18 141/87 97
07/13/24 07:00 07/13/24 07:00 07/13/24 07:00 07/13/24 07:00 07/13/24 07:00
I&O
07/12/24 07/13/24 07/14/24
06:59 06:59 06:59
Intake Total 480 / 480 3540 / 3540
Balance 480 / 480 3540 / 3540
[2024-07-13] MEDS: KCL 40 MEQ PO (13:01)
--- NOTE | 2024-07-13 14:42 | W.PN.GI.CBS2 ---
Today's Communication / Plan
-
Trend LFT
Follow-up liver disease workup ordered today
Assessment / Plan
-
Impression: 49-year-old female with PMH of hypothyroidism s/p thyroidectomy on levothyroxine, intermittent dizziness and vertigo who presented to ED on 07/10 with RUQ discomfort, painless jaundice and elevated LFTs. Patient reports that she had
an RUQ discomfort about a month and a half ago and was evaluated with abdominal ultrasound with her PCP, which came back negative. Has symptoms was suspected to be musculoskeletal in origin and she was advised to use heat/ice with lidocaine as
needed and was also asked to take Tylenol/ibuprofen if needed. She also received flu vaccine during that visit. About 2 weeks ago, he developed a URI and later developed persistent nausea, dizziness potentially related to her history of vertigo
during weather changes. Her symptoms progressed to severe cough, nasal congestion, headaches for which she started taking pseudoephedrine/acetaminophen 2 pills every 6 hours for about 5 days and then switch to Advil cold and sinus which she took
last about a week ago. Did not take these 2 medications at the same time and denies taking any other apxy-ljm-wwhekdd medications, or supplements. She reports that her boyfriend came down with cold around this time. She continues to have
abdominal discomfort with occasional nausea and vomiting. On 07/05, patient was seen by her PCP for vertigo and was prescribed ondansetron and meclizine which she did not take. This morning, her daughter noticed that she is slightly jaundiced
weakness assisted her visit to the ED. She denies any use of other OTC medications, supplements, history of IV drug use, mushroom exposure, alcohol use, muscle aches, sick contacts, recent travels, fever, chills.
Assessment/plan:
#Acute liver injury-mixed pattern (07/13/2024-AST 1223/ALT 883/alkaline phosphatase 173/bilirubin 15.4). Transaminitis trending down. Bilirubin remains elevated., Differential-autoimmune hepatitis versus infectious versus DILI
Liver disease workup so far-acute hepatitis panel negative. CMV negative. Although EBV IgG is positive EBV IgM antibody is negative.
JCARLOS/anti-smooth muscle antibody positive ( 45 ) antimitochondrial antibody negative.
Ultrasound abdomen with Doppler-IMPRESSION:
The left hepatic vein appears slightly diminutive in caliber, otherwise unremarkable ultrasound of the upper abdominal vasculature.
CT abdomen/pelvis-mild left within normal limits. Scattered subcentimeter hypodensity in the liver. Likely represent cysts or hemangiomas
plan
Will complete liver disease workup by adding-immunoglobulin G/M/ ceruloplasmin/ferritin/transferrin saturation
Continue trend LFT/INR
Avoid hepatotoxic substance/alcohol
If liver test persistently elevated will recommend liver biopsy
Subjective
Subjective
Date of Service: July 13, 2024
Denies any complaint
Objective
Data Reviewed
Laboratory Data:
Laboratory Results
07/13/24 07:56
07/13/24 07:56
Laboratory Results
PT 14.9 Sec (11.4-14.6) H 07/12/24 07:08
INR 1.12 07/12/24 07:08
Magnesium 1.9 mg/dl (1.6-2.3) 07/11/24 06:01
Total Bilirubin 15.4 mg/dl (0.2-1.3) H 07/13/24 07:56
AST 1223 U/L (14-36) H* 07/13/24 07:56
ALT 883 U/L (0-35) H* 07/13/24 07:56
Alkaline Phosphatase 173 U/L (38-126) H 07/13/24 07:56
Lipase 33 U/L (23-300) 07/10/24 14:13
Vital Signs and I&O:
Vital Signs
Temp Pulse Resp BP Pulse Ox
97.7 F 72 18 141/87 97
07/13/24 07:00 07/13/24 07:00 07/13/24 07:00 07/13/24 07:00 07/13/24 07:00
I&O
07/12/24 07/13/24 07/14/24
06:59 06:59 06:59
Intake Total 480 / 480 3540 / 3540
Balance 480 / 480 3540 / 3540
Physical Exam
Physical Exam
HEENT: Other (icteric )
GI: Soft, Non Distended and Non Tender
[2024-07-13 15:00] VITALS: BP 131/99
[2024-07-13 16:07] LABS: Iron 285 ug/dl (37-170)
[2024-07-13 16:17] LABS: Percent Saturation 80 % (20-50); Total Iron Binding Capacity 356 ug/dl (265-497)
[2024-07-13] MEDS: LOVENOX 40 MG SC (17:21)
[2024-07-13 23:05] VITALS: BP 141/95
[2024-07-14 01:53] LABS: Endomysial IgA Antibody Titer <1:10 (<1:10)
[2024-07-14] MEDS: SYNTHROID 75 MCG PO (06:08)
--- NOTE | 2024-07-14 06:23 | W.PN.HOSP.TC ---
Addendum entered and electronically signed by Eric Smith MD 07/15/24 13:22:
mild protein calorie malnutrition of acute illness with sudden weight loss prior to admission, sudden decreased intake < 75% for > 5 days.
Original Note:
Today's Communication/Plan
-
NPO after midnight for liver bx
IR consult requested
cont monitoring LFTs
ativan prn anxiety
Assessment / Plan
Assessment / Plan
Physical Exam
General: Well Developed, Well Nourished, No Apparent Distress and Comfortable
HEENT: Normocephalic, Atraumatic, Moist Mucous Membranes
Respiratory: Clear to Auscultation
Cardiac: Regular Rhythm and S1/S2
GI: Soft, Nontender and Nondistended
Musculoskeletal: No Clubbing, No Cyanosis and No Edema
Skin: Warm, Dry and Jaundice
Neuro: AOx3
Psych: anxious
49 woman with acute episode of painless jaundice and transaminitis. Recent history of heavy tylenol and ibuprofen use but stopped taking tylenol 1 week ago and tylenol levels were negative at admit. No ETOH, no gallstones. No evidence of
cirrhosis. No other meds.
PLAN:
# Liver injury - unclear etiology possibly post-infectious vs viral vs drug induced liver injury vs autoimmune
- serology neg for hepatitis
- High EBV igG
- JCARLOS detected, anti-mitochondrial ab wnl, ESR appreciated mild elevation 23 (within expected range for age and gender)
- trend LFTs slowly improving
- stop all tylenol and ibuprofen products
- GI consultation appreciated LFTs persistently elevated Liver biopsy recommended, IR consulted, npo after midnight
# Hypothyroidism
#Iatrogenic Hyperthyroidism
- TSH low, elevated T4
-home Synthroid reduced from 88 mcg to 75 mcg
DVT PPX - Lovenox
Code Status - Full Code
I spent a total of 45 minutes with the patient or on the floor. More than 50% of this time involved counseling and coordination of care.
Anticipated Discharge: 24 - 48 hours
Subjective/Interval History
-
Date of Service: July 14, 2024
Seen and examined at bedside in no acute distress. Comfortable but anxious regarding upcoming liver biopsy. Otherwise denies new acute issues.
Objective Data
-
Labs:
Laboratory Results
07/14/24 07/14/24
06:11 06:12
WBC Pending
Hgb Pending
Hct Pending
Plt Count Pending
Sodium Pending
Potassium Pending
Chloride Pending
Carbon Dioxide Pending
BUN Pending
Creatinine Pending
Glucose Pending
Calcium Pending
Total Bilirubin Pending
AST Pending
ALT Pending
Alkaline Phosphatase Pending
Vital Signs:
Vital Signs
Temp Pulse Resp BP Pulse Ox
98.3 F 82 17 141/95 99
07/13/24 23:05 07/13/24 23:05 07/13/24 23:05 07/13/24 23:05 07/13/24 23:05
I&O
07/12/24 07/13/24 07/14/24
06:59 06:59 06:59
Intake Total 480 / 480 3540 / 3540 1160 / 1160
Balance 480 / 480 3540 / 3540 1160 / 1160
[2024-07-14 07:08] LABS: Hematocrit 35.9 % (37.0-47.0); Hemoglobin 12.1 g/dL (12.0-16.0); Mean Corp Hgb Conc. 33.7 g/dL (33.0-37.0); Mean Corpuscular Hgb 30.8 pg (27.0-31.0); Mean Corpuscular Volume 91.3 fL (81.0-99.0); Mean Platelet Volume 10.7 fL (7.4-10.4); Platelet Count 207 10^3/uL (130-400); Red Blood Cell Count 3.93 10^6/uL (4.20-5.40); Red Cell Dist. Width 15.6 % (11.5-14.5); White Blood Cell Count 5.8 10^3/uL (4.8-10.8)
[2024-07-14 07:11] LABS: Albumin 3.4 g/dl (3.5-5.0); Alkaline Phosphatase 186 U/L (38-126); Blood Urea Nitrogen 6 mg/dl (7-17); Calcium 8.3 mg/dl (8.4-10.2); Carbon Dioxide 26 mmol/L (22-30); Chloride 100 mmol/L (98-107); Estimated Creatinine Clearance 104 ml/min; Glucose 92 mg/dl (70-99); Magnesium 1.8 mg/dl (1.6-2.3); Phosphorus 3.3 mg/dl (2.5-4.5); Potassium 3.5 mmol/L (3.5-5.1); Sodium 137 mmol/L (135-145); Total Bilirubin 16.9 mg/dl (0.2-1.3); Total Protein 7.3 g/dl (6.3-8.2); eGFR > 60.00
[2024-07-14 07:28] LABS: ALT (SGPT) 917 U/L (0-35); AST (SGOT) 1224 U/L (14-36)
[2024-07-14 07:30] VITALS: BP 128/85
[2024-07-14 10:28] LABS: INR 1.19; PT 15.6 Sec (11.4-14.6)
--- NOTE | 2024-07-14 11:25 | W.PN.GI.CBS2 ---
Today's Communication / Plan
-
IR consultation for liver biopsy
Continue trend LFT/INR
Bowel regimen
Assessment / Plan
-
Impression: 49-year-old female with PMH of hypothyroidism s/p thyroidectomy on levothyroxine, intermittent dizziness and vertigo who presented to ED on 07/10 with RUQ discomfort, painless jaundice and elevated LFTs. Patient reports that she had
an RUQ discomfort about a month and a half ago and was evaluated with abdominal ultrasound with her PCP, which came back negative. Has symptoms was suspected to be musculoskeletal in origin and she was advised to use heat/ice with lidocaine as
needed and was also asked to take Tylenol/ibuprofen if needed. She also received flu vaccine during that visit. About 2 weeks ago, he developed a URI and later developed persistent nausea, dizziness potentially related to her history of vertigo
during weather changes. Her symptoms progressed to severe cough, nasal congestion, headaches for which she started taking pseudoephedrine/acetaminophen 2 pills every 6 hours for about 5 days and then switch to Advil cold and sinus which she took
last about a week ago. Did not take these 2 medications at the same time and denies taking any other rots-cvc-otiuvag medications, or supplements. She reports that her boyfriend came down with cold around this time. She continues to have
abdominal discomfort with occasional nausea and vomiting. On 07/05, patient was seen by her PCP for vertigo and was prescribed ondansetron and meclizine which she did not take. This morning, her daughter noticed that she is slightly jaundiced
weakness assisted her visit to the ED. She denies any use of other OTC medications, supplements, history of IV drug use, mushroom exposure, alcohol use, muscle aches, sick contacts, recent travels, fever, chills.
Assessment/plan:
#Acute liver injury-mixed pattern (07/14/2024-AST 1224/ALT 917/alkaline phosphatase 186/bilirubin 16.9). Transaminitis trending down. Bilirubin remains elevated., Differential-autoimmune hepatitis versus infectious versus DILI
Liver disease workup so far-acute hepatitis panel negative. CMV negative. Although EBV IgG is positive EBV IgM antibody is negative.
JCARLOS/smooth muscle F actin antibody positive ( 45 ) antimitochondrial antibody negative.
Ultrasound abdomen with Doppler-IMPRESSION:
The left hepatic vein appears slightly diminutive in caliber, otherwise unremarkable ultrasound of the upper abdominal vasculature.
CT abdomen/pelvis-mild left within normal limits. Scattered subcentimeter hypodensity in the liver. Likely represent cysts or hemangiomas
# Constipation
plan
Will complete liver disease workup by adding-immunoglobulin G/M/ ceruloplasmin/ferritin/transferrin saturation
Continue trend LFT/INR
Avoid hepatotoxic substance/alcohol
I discussed benefits and risks of liver biopsy. Patient verbalized understanding and is agreeable for the procedure. Will put IR consultation for liver biopsy
Will start on bowel regimen-MiraLAX daily.
Total Time Spent with Patient (in minutes): 35
Subjective
Subjective
Date of Service: July 14, 2024
Patient claims she has been constipated since . No abdominal pain/nausea/vomiting.
Objective
Data Reviewed
Laboratory Data:
Laboratory Results
07/14/24 06:11
07/14/24 06:12
Laboratory Results
PT 15.6 Sec (11.4-14.6) H 07/14/24 10:01
INR 1.19 07/14/24 10:01
Phosphorus 3.3 mg/dl (2.5-4.5) 07/14/24 06:12
Magnesium 1.8 mg/dl (1.6-2.3) 07/14/24 06:12
Total Bilirubin 16.9 mg/dl (0.2-1.3) H 07/14/24 06:12
AST 1224 U/L (14-36) H* 07/14/24 06:12
ALT 917 U/L (0-35) H* 07/14/24 06:12
Alkaline Phosphatase 186 U/L (38-126) H 07/14/24 06:12
Lipase 33 U/L (23-300) 07/10/24 14:13
Vital Signs and I&O:
Vital Signs
Temp Pulse Resp BP Pulse Ox
97.9 F 79 16 128/85 97
07/14/24 07:30 07/14/24 07:30 07/14/24 07:30 07/14/24 07:30 07/14/24 07:30
I&O
07/13/24 07/14/24 07/15/24
06:59 06:59 06:59
Intake Total 3540 / 3540 1160 / 1160
Balance 3540 / 3540 1160 / 1160
Physical Exam
Physical Exam
HEENT: Other (Icterus)
GI: Soft, Non Distended and Non Tender
[2024-07-14] MEDS: DULCOLAX 10 MG PO (12:18)
[2024-07-14] MEDS: MIRALAX 17 GRAMS PO (12:18)
[2024-07-14 16:00] VITALS: BP 134/89
[2024-07-14] MEDS: ATIVAN 0.25 MG PO (17:17)
[2024-07-14] MEDS: LOVENOX 40 MG SC (17:18)
[2024-07-14 23:20] VITALS: BP 152/90
[2024-07-15] VITALS (15 sets, daily range): BP systolic 75–146; BP diastolic 73–95
[2024-07-15] MEDS: ATIVAN 0.25 MG PO (00:38)
[2024-07-15] MEDS: SYNTHROID 75 MCG PO (05:56)
[2024-07-15 06:07] LABS: IgA 222 mg/dl (70-400); IgG 2018 mg/dl (700-1600); IgM 238 mg/dl (40-230)
--- NOTE | 2024-07-15 06:32 | W.PN.HOSP.TC ---
Today's Communication/Plan
-
NPO for liver bx
ativan prn anxiety
cont to monitor LFTs coags
Assessment / Plan
Assessment / Plan
Physical Exam
General: Well Developed, Well Nourished, No Apparent Distress and Comfortable
HEENT: Normocephalic, Atraumatic, Moist Mucous Membranes
Respiratory: Clear to Auscultation
Cardiac: Regular Rhythm and S1/S2
GI: Soft, Nontender and Nondistended
Musculoskeletal: No Clubbing, No Cyanosis and No Edema
Skin: Warm, Dry and Jaundice
Neuro: AOx3
Psych: anxious
49 woman with acute episode of painless jaundice and transaminitis. Recent history of heavy tylenol and ibuprofen use but stopped taking tylenol 1 week ago and tylenol levels were negative at admit. No ETOH, no gallstones. No evidence of
cirrhosis. No other meds.
PLAN:
# Liver injury - unclear etiology possibly post-infectious vs viral vs drug induced liver injury vs autoimmune
- serology neg for hepatitis
- High EBV igG
- JCARLOS detected, anti-mitochondrial ab wnl, ESR appreciated mild elevation 23 (within expected range for age and gender)
- trend LFTs slowly improving
- stop all tylenol and ibuprofen products
- GI consultation appreciated LFTs persistently elevated Liver biopsy recommended, IR consulted, npo for liver biopsy
mild protein calorie malnutrition of acute illness with sudden weight loss prior to admission, sudden decreased intake < 75% for > 5 days.
# Hypothyroidism
#Iatrogenic Hyperthyroidism
- TSH low, elevated T4
-home Synthroid reduced from 88 mcg to 75 mcg
DVT PPX - Lovenox
Code Status - Full Code
I spent a total of 45 minutes with the patient or on the floor. More than 50% of this time involved counseling and coordination of care.
Anticipated Discharge: 24 - 48 hours
Subjective/Interval History
-
Date of Service: July 15, 2024
No acute distress. Appears comfortable at this time though anxious regarding upcoming procedure liver biopsy.
Objective Data
-
Labs:
Laboratory Results
07/15/24
06:00
WBC Pending
Hgb Pending
Hct Pending
Plt Count Pending
Sodium Pending
Potassium Pending
Chloride Pending
Carbon Dioxide Pending
BUN Pending
Creatinine Pending
Glucose Pending
Calcium Pending
Total Bilirubin Pending
AST Pending
ALT Pending
Alkaline Phosphatase Pending
Vital Signs:
Vital Signs
Temp Pulse Resp BP Pulse Ox
98.1 F 84 17 152/90 97
07/14/24 23:20 07/14/24 23:20 07/14/24 23:20 07/14/24 23:20 07/14/24 23:20
I&O
07/13/24 07/14/24 07/15/24
06:59 06:59 06:59
Intake Total 3540 / 3540 1160 / 1160 780 / 780
Balance 3540 / 3540 1160 / 1160 780 / 780
[2024-07-15 07:29] LABS: ANA Pattern Homogeneous; ANA Pattern 2 Centromere; ANA, HEp-2, IgG Detected (<1:80); Cytoplasmic Pattern AMA
[2024-07-15 07:32] LABS: Smooth Muscle Antibody Titer <1:20 (<1:20)
[2024-07-15 09:15] LABS: Hematocrit 36.5 % (37.0-47.0); Mean Corp Hgb Conc. 32.9 g/dL (33.0-37.0); Mean Corpuscular Hgb 30.8 pg (27.0-31.0); Mean Corpuscular Volume 93.8 fL (81.0-99.0); Mean Platelet Volume 11.6 fL (7.4-10.4); Platelet Count 221 10^3/uL (130-400); Red Blood Cell Count 3.89 10^6/uL (4.20-5.40); White Blood Cell Count 6.3 10^3/uL (4.8-10.8)
[2024-07-15 10:23] LABS: Albumin 3.4 g/dl (3.5-5.0); Alkaline Phosphatase 179 U/L (38-126); Blood Urea Nitrogen 7 mg/dl (7-17); Calcium 8.6 mg/dl (8.4-10.2); Carbon Dioxide 25 mmol/L (22-30); Chloride 100 mmol/L (98-107); Estimated Creatinine Clearance 104 ml/min; Glucose 82 mg/dl (70-99); Magnesium 1.7 mg/dl (1.6-2.3); Phosphorus 3.9 mg/dl (2.5-4.5); Potassium 3.4 mmol/L (3.5-5.1); Sodium 136 mmol/L (135-145); Total Bilirubin 17.9 mg/dl (0.2-1.3); Total Protein 7.4 g/dl (6.3-8.2); eGFR > 60.00
[2024-07-15] MEDS: MIRALAX PO (10:31)
[2024-07-15 10:46] LABS: ALT (SGPT) 932 U/L (0-35); AST (SGOT) 1156 U/L (14-36)
--- NOTE | 2024-07-15 11:25 | PN.CDI ---
CDI
- -
CDI:
Physician Documentation Request
Admit Date: 07/10/24 19:48
Dear Doctor Sarah,
07/11 notes and assessment state 'Consult for unintentional weight loss. pt meets ASPEN criteria for mild protein calorie malnutrition of acute illness with sudden weight loss prior to admission, sudden decreased intake < 75% for > 5 days. '
Based on the above information and your assessment, which of the following most accurately represents the patient's nutritional status?
Mild Malnutrition
Other (please specify)
[place] Criteria ([facility] Hospitalist 2017)
2 or more criteria must be present for either
non severe or severe malnutrition
Note that the criteria differs related to the
presence of an acute or chronic illness
Acute Illness Chronic Illness
Energy Intake Non Severe: <75% for >7 days Non Severe: <75% for >1 month
Severe: <50% for >5 days Severe: <75% for >1 month
Weight Loss Non Severe: 1-2% over 1 week Non Severe: 5% over 1 month
5% over 1 month 7.5% over 3 months
7.5% over 3 months 10% over 6 months
1 year N/A 20% over 1 year
Severe: >2% over 1 week Severe: >5% over 1 month
>5% over 1 month >7.5% over 3 months
>7.5% over 3 months >10% over 6 months
1 year N/A >20% over 1 year
Body Fat Non Severe: Mild Decrease Non Severe: Mild Loss
Severe: Moderate Decrease Severe: Severe Loss
Muscle Mass Non Severe: Mild Decrease Non Severe: Mild Loss
Severe: Moderate Decrease Severe: Severe Loss
Fluid Accumulation Non Severe: Mild Accumulation Non Severe: Mild Accumulation
Severe: Moderate to severe Severe: Moderate to severe
accumulation accumulation
Reduced Language Assistant Strength Non Severe: N/A Non Severe: N/A
Severe: Measurably reduced Severe: Measurably reduced
Use of terms such as suspected, likely, concern for, or probable (associated with a specific diagnosis that is being evaluated, monitored, or treated as if it exists) are acceptable and can be coded in the inpatient setting, when documented at the
time of discharge.
Thank you,
Hedy Velazquez RN, BSN
CDI Specialist
tiger text
Please use your independent medical judgment in providing your response.
[2024-07-15 12:06] LABS: Ceruloplasmin 23 mg/dL (16-45)
[2024-07-15 12:12] LABS: Alpha-1-Antitrypsin 187 mg/dL (90-200)
[2024-07-15] MEDS: ATIVAN 0.5 MG IV (12:50)
[2024-07-15] MEDS: NSS (PRESERVATIVE FREE) 0.25 ML IV (12:58)
--- NOTE | 2024-07-15 16:18 | W.PN.GI.CBS2 ---
Addendum entered and electronically signed by Car Costa MD 07/15/24 17:02:
I saw and examined the patient.
The RESEARCH DEVELOPMENT MANAGER or PA's note was reviewed and I agree with the note.
Comment: 49 yo F pmh Jose Juan's with recent URI p/w abnormal LFTs.
Labs concerning for possible AIH but bili more elevated than expected.
I d/w IR/path this am to expedite the liver biopsy and we will follow up in AM to see if we can get prelim read. I asked if iron can be stained as well low suspicion for hemochromatosis but since iron sat is high I relayed to path suspect more
autoimmune process.
I discussed with Dr. Villegas from [facility] recommend to hold on steroids until we get liver biopsy back.
Trend daily LFTs and coags.
Original Note:
Today's Communication / Plan
-
await liver bx and pending labs
Assessment / Plan
-
Impression: 49-year-old female with PMH of hypothyroidism s/p thyroidectomy on levothyroxine, intermittent dizziness and vertigo who presented to ED on 07/10 with RUQ discomfort, painless jaundice and elevated LFTs. Patient reports that she had
an RUQ discomfort about a month and a half ago and was evaluated with abdominal ultrasound with her PCP, which came back negative. Has symptoms was suspected to be musculoskeletal in origin and she was advised to use heat/ice with lidocaine as
needed and was also asked to take Tylenol/ibuprofen if needed. She also received flu vaccine during that visit. About 2 weeks ago, he developed a URI and later developed persistent nausea, dizziness potentially related to her history of vertigo
during weather changes. Her symptoms progressed to severe cough, nasal congestion, headaches for which she started taking pseudoephedrine/acetaminophen 2 pills every 6 hours for about 5 days and then switch to Advil cold and sinus which she took
last about a week ago. Did not take these 2 medications at the same time and denies taking any other njsl-wve-ieiqchg medications, or supplements. She reports that her boyfriend came down with cold around this time. She continues to have
abdominal discomfort with occasional nausea and vomiting. On 07/05, patient was seen by her PCP for vertigo and was prescribed ondansetron and meclizine which she did not take. This morning, her daughter noticed that she is slightly jaundiced
weakness assisted her visit to the ED. She denies any use of other OTC medications, supplements, history of IV drug use, mushroom exposure, alcohol use, muscle aches, sick contacts, recent travels, fever, chills.
Assessment/plan:
#Acute liver injury-mixed pattern (07/15/2024 total bilirubin 17.9, AST 1156, ALT 932, alk phos 179) (07/14/2024-AST 1224/ALT 917/alkaline phosphatase 186/bilirubin 16.9). Transaminitis trending down. Bilirubin remains elevated.,
Differential-autoimmune hepatitis versus infectious versus DILI
Liver disease workup so far:
acute hepatitis panel negative.
CMV negative
EBV IgG is positive/ EBV IgM antibody is negative.
JCARLOS 1: 2560
JCARLOS/smooth muscle F actin antibody positive ( 45 )
Mitochondrial M2 antibody 7.5
Anti-smooth muscle antibody titer less than 1: 20
Endomysial IgA antibody titer less than 1: 10
antimitochondrial antibody negative.
Ceruloplasmin 23
Alpha 1 antitrypsin 187
IgA 222
IgG 2018 (H)
IgM 238 (H)
Iron 285
TIBC 356
Percent iron saturation 80
Tissue transglutaminase IgG (pending)
Tissue transglutaminase IgA (pending)
Anti-LK M1 antibody (pending)
Ultrasound abdomen with Doppler-IMPRESSION:
The left hepatic vein appears slightly diminutive in caliber, otherwise unremarkable ultrasound of the upper abdominal vasculature.
CT abdomen/pelvis-mild left within normal limits. Scattered subcentimeter hypodensity in the liver. Likely represent cysts or hemangiomas
# Constipation
plan
-Liver biopsy just completed, await results.
Will complete liver disease workup pending as above.
Continue trend LFT/INR
Will start on bowel regimen-MiraLAX daily.
Will have to order HFE as outpatient as will not allow as inpatient.
Subjective
Subjective
Date of Service: July 15, 2024
Patient states she is a little 'sleepy' after liver biopsy. No other complaints. Hemoglobin stable, platelets within normal limits. INR from 07/14/2024 1.19. Total bilirubin 17.9 (up from 16.9), AST 1156 (down from 1224), ALT 932 (up 917), alk
phos 179 (down 186)
Objective
Data Reviewed
Laboratory Data:
Laboratory Results
07/15/24 07:59
07/15/24 07:59
Laboratory Results
PT 15.6 Sec (11.4-14.6) H 07/14/24 10:01
INR 1.19 07/14/24 10:01
Phosphorus 3.9 mg/dl (2.5-4.5) 07/15/24 07:59
Magnesium 1.7 mg/dl (1.6-2.3) 07/15/24 07:59
Total Bilirubin 17.9 mg/dl (0.2-1.3) H 07/15/24 07:59
AST 1156 U/L (14-36) H* 07/15/24 07:59
ALT 932 U/L (0-35) H* 07/15/24 07:59
Alkaline Phosphatase 179 U/L (38-126) H 07/15/24 07:59
Lipase 33 U/L (23-300) 07/10/24 14:13
Vital Signs and I&O:
Vital Signs
Temp Pulse Resp BP Pulse Ox
98.4 F 86 17 145/95 95
07/15/24 16:00 07/15/24 16:00 07/15/24 16:00 07/15/24 16:00 07/15/24 16:00
I&O
07/14/24 07/15/24 07/16/24
06:59 06:59 06:59
Intake Total 1160 / 1160 1020 / 1020 150 / 150
Balance 1160 / 1160 1020 / 1020 150 / 150
Physical Exam
Physical Exam
HEENT: Other (Positive icteric)
Cardiology: Normal Sinus Rhythm
Pulmonary: Clear
GI: Soft, Non Distended, Non Tender and Normal Bowel Sounds
Extremities: No Edema
Neuro: Non Focal
--- NOTE | 2024-07-15 17:00 | CM ---
Patient continues to be functionally independent, clinical w/u still in progress. Will return home with Significant other when stable.
Plan: Case management will continue to follow and assist with discharge planning. Home when cleared for d/c.
[2024-07-15] MEDS: LOVENOX SC (17:55)
--- NOTE | 2024-07-15 19:09 | PTCARENOTE ---
Pt returned from IR post liver biopsy. VSS. Bandaid over puncture site in RUQ clean, dry, intact, and abdomen nontender. Pt informed of activity restrictions for 3 hours post procedure. Pt resting in bed during this time with daughters at bedside.
Call sanders within reach.
[2024-07-16 03:00] VITALS: BP 118/83
[2024-07-16] MEDS: SYNTHROID 75 MCG PO (05:45)
[2024-07-16 07:33] VITALS: BP 121/84
[2024-07-16 08:02] LABS: Hematocrit 34.2 % (37.0-47.0); Hemoglobin 11.9 g/dL (12.0-16.0); Mean Corp Hgb Conc. 34.8 g/dL (33.0-37.0); Mean Corpuscular Hgb 31.2 pg (27.0-31.0); Mean Corpuscular Volume 89.5 fL (81.0-99.0); Mean Platelet Volume 11.8 fL (7.4-10.4); Platelet Count 211 10^3/uL (130-400); Red Blood Cell Count 3.82 10^6/uL (4.20-5.40); Red Cell Dist. Width 15.9 % (11.5-14.5); White Blood Cell Count 6.6 10^3/uL (4.8-10.8)
--- NOTE | 2024-07-16 08:02 | W.PN.GI.CBS2 ---
Addendum entered and electronically signed by LUBNA Sotomayor 07/16/24 11:05:
Preliminary Liver Bx c/w autoimmune hepatitis. Will start prednisone 60 mg daily. Discussed with patient. Also will check TPMT, ordered. Will also start on Pantoprazole daily for GI ppx.
Original Note:
Today's Communication / Plan
-
Still with ongoing severe, acute hepatocellular induced liver injury with jaundice with T Bili 17s. S/p recent liver biopsy on 07/15 given concern for severe AIH. Still favor holding steroids pending results of liver biopsy. Have reached out to
pathology in hopes of obtaining pre-king read in the next 24 hrs. Await rest of serologic w/u. Synthetic function continues to remain intact without concern for SAMI. See rest of care as outlined below.
Assessment / Plan
-
Impression: 49-year-old female with PMH of hypothyroidism s/p thyroidectomy on levothyroxine, intermittent dizziness and vertigo who presented to ED on 07/10 with RUQ discomfort, painless jaundice and elevated LFTs. Patient reports that she had
an RUQ discomfort about a month and a half ago and was evaluated with abdominal ultrasound with her PCP, which came back negative. Has symptoms was suspected to be musculoskeletal in origin and she was advised to use heat/ice with lidocaine as
needed and was also asked to take Tylenol/ibuprofen if needed. She also received flu vaccine during that visit. About 2 weeks ago, he developed a URI and later developed persistent nausea, dizziness potentially related to her history of vertigo
during weather changes. Her symptoms progressed to severe cough, nasal congestion, headaches for which she started taking pseudoephedrine/acetaminophen 2 pills every 6 hours for about 5 days and then switch to Advil cold and sinus which she took
last about a week ago. Did not take these 2 medications at the same time and denies taking any other rhax-ryr-lfjfxmx medications, or supplements. She reports that her boyfriend came down with cold around this time. She continues to have
abdominal discomfort with occasional nausea and vomiting. On 07/05, patient was seen by her PCP for vertigo and was prescribed ondansetron and meclizine which she did not take. This morning, her daughter noticed that she is slightly jaundiced
weakness assisted her visit to the ED. She denies any use of other OTC medications, supplements, history of IV drug use, mushroom exposure, alcohol use, muscle aches, sick contacts, recent travels, fever, chills.
Assessment/plan:
#Acute liver injury-mixed pattern (07/15/2024 total bilirubin 17.9, AST 1156, ALT 932, alk phos 179) (07/14/2024-AST 1224/ALT 917/alkaline phosphatase 186/bilirubin 16.9). Transaminitis trending down. Bilirubin remains elevated.,
Differential-autoimmune hepatitis versus infectious versus DILI
Liver disease workup so far:
acute hepatitis panel negative.
CMV negative
EBV IgG is positive/ EBV IgM antibody is negative.
JCAROLS 1: 2560
JCARLOS/smooth muscle F actin antibody positive ( 45 )
Mitochondrial M2 antibody 7.5
Anti-smooth muscle antibody titer less than 1: 20
Endomysial IgA antibody titer less than 1: 10
antimitochondrial antibody negative.
Ceruloplasmin 23
Alpha 1 antitrypsin 187
IgA 222
IgG 2018 (H)
IgM 238 (H)
Iron 285
TIBC 356
Percent iron saturation 80
Tissue transglutaminase IgG (pending)
Tissue transglutaminase IgA (pending)
Anti-LK M1 antibody (pending)
Ultrasound abdomen with Doppler-IMPRESSION:
The left hepatic vein appears slightly diminutive in caliber, otherwise unremarkable ultrasound of the upper abdominal vasculature.
CT abdomen/pelvis-mild left within normal limits. Scattered subcentimeter hypodensity in the liver. Likely represent cysts or hemangiomas
Recommendations:
- Continue to trend daily LFTs and INR
- Await rest of full serologic w/u as above
- Follow-up results of liver biopsy (sent for cuellar), hopefully can obtain pre-king read over next 24-48 hrs. Have reached out to pathology this AM
- Would still hold off on steroids given concern for potential AIH pending results of liver biopsy
- If patient develops new-onset pruritus, would consider starting cholestyramine
- Continue to monitor mental status, synthetic function remains intact without concern for SAMI
- If acute change in mental status, please alert GI on-call as patient would need to be transferred to [facility] center if any concern for FPC
- Rest of care per primary team
Discussed with internal medicine team this AM. GI team will continue to follow while inpatient.
Subjective
Subjective
Date of Service: July 16, 2024
- S/p liver biopsy 07/15 with IR, otherwise no acute events overnight
- Still pending repeat AM LFTs, ALT still 900s along with AST 1150s with rising T Bili to 17.9
Resting comfortably, although tearful as patient has been in the hospital since [place] and hoping to go home. Discussed importance of ongoing close monitoring until liver biopsy results, hopefully pre-king read within the next 24-48 hrs given
concern for AIH. Otherwise, denies any abdominal pain, RUQ discomfort, nausea/vomiting or other fevers/chills. Mentating appropriately.
Objective
Data Reviewed
Laboratory Data:
Laboratory Results
07/16/24 06:44
Laboratory Results
PT 15.6 Sec (11.4-14.6) H 07/14/24 10:01
INR 1.19 07/14/24 10:01
Phosphorus 3.9 mg/dl (2.5-4.5) 07/15/24 07:59
Magnesium 1.7 mg/dl (1.6-2.3) 07/15/24 07:59
Total Bilirubin 17.9 mg/dl (0.2-1.3) H 07/15/24 07:59
AST 1156 U/L (14-36) H* 07/15/24 07:59
ALT 932 U/L (0-35) H* 07/15/24 07:59
Alkaline Phosphatase 179 U/L (38-126) H 07/15/24 07:59
Lipase 33 U/L (23-300) 07/10/24 14:13
Vital Signs and I&O:
Vital Signs
Temp Pulse Resp BP Pulse Ox
98.3 F 91 18 121/84 97
07/16/24 07:33 07/16/24 07:33 07/16/24 07:33 07/16/24 07:33 07/16/24 07:33
I&O
07/15/24 07/16/24 07/17/24
06:59 06:59 06:59
Intake Total 1020 / 1020 630 / 630
Balance 1020 / 1020 630 / 630
Physical Exam
Physical Exam
HEENT: Moist mucous membranes and Other (Scleral icterus)
Cardiology: Normal Sinus Rhythm
Pulmonary: Other (Normal WOB on room air)
GI: Soft, Non Distended and Non Tender
Extremities: Other (Diffuse jaundice)
Neuro: Non Focal and Other (AAOx3; no asterixis)
[2024-07-16] MEDS: MIRALAX PO (08:05)
[2024-07-16 08:08] LABS: INR 1.25; PT 16.2 Sec (11.4-14.6)
[2024-07-16 08:34] LABS: Albumin 3.2 g/dl (3.5-5.0); Alkaline Phosphatase 198 U/L (38-126); Blood Urea Nitrogen 9 mg/dl (7-17); Calcium 8.2 mg/dl (8.4-10.2); Carbon Dioxide 26 mmol/L (22-30); Chloride 99 mmol/L (98-107); Direct Bilirubin 14.9 mg/dl (0.0-0.4); Estimated Creatinine Clearance 104 ml/min; Glucose 118 mg/dl (70-99); Magnesium 1.9 mg/dl (1.6-2.3); Phosphorus 3.3 mg/dl (2.5-4.5); Potassium 3.4 mmol/L (3.5-5.1); Sodium 135 mmol/L (135-145); Total Bilirubin 17.1 mg/dl (0.2-1.3); Total Protein 7.3 g/dl (6.3-8.2); eGFR > 60.00
[2024-07-16 09:37] LABS: ALT (SGPT) 987 U/L (0-35); AST (SGOT) 1038 U/L (14-36)
--- NOTE | 2024-07-16 11:13 | W.PN.HOSP.TC ---
Addendum entered and electronically signed by Venancio Groves MD 07/16/24 12:17:
Discussed with rheumatology on-call Dr. Aurelio Mcadams Regarding elevated JCARLOS
Recommended to check dsDNA, SSA/ SSB, WOOL SORTER/ Cook, TB test , C3,C4, u urine protein creatinine ratio
We do not have a TPMT therefore they will do it as outpatient.
They will work her up as OP for an overlap syndrome for the positive JCARLOS.
Continue steroids for now
Original Note:
Today's Communication/Plan
-
Monitor response to steroids
Assessment / Plan
Assessment / Plan
49 woman with acute episode of painless jaundice and transaminitis. Recent history of heavy Tylenol and ibuprofen use but stopped taking Tylenol 1 week ago and Tylenol levels were negative at admit. No ETOH, no gallstones. No evidence of
cirrhosis. No other meds.
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 No fulminant acute hepatocellular necrosis is not identified. Portal vessels and bile ducts are intact. Lobular and portal involvement by a dense lymphoblasts monocytic
inflammatory cell infiltrate with individual lobar hepatocyte apoptosis. Mild cholestatic changes are noted. No viral inclusions are identified. Findings are compatible with autoimmune hepatitis
Icterus
CVS: S1-S2 normal
Chest: CTA B/L
Abdomen: Soft, NT / Bowel sounds present
Extremities: No edema
PLAN:
# Liver injury - unclear etiology possibly post-infectious vs viral vs drug induced liver injury vs autoimmune
- Serology neg for hepatitis
- High EBV IgG
- JCARLOS detected, anti-mitochondrial , F-actin IgG High
- Trend LFTs slowly improving
- Stopped all Tylenol and ibuprofen products
- Status post liver biopsy on 07/15/2024 showing autoimmune hepatitis
- With positive JCARLOS needs rheumatology opinion as well.
- Patient started on steroids
# Mild hypokalemia-replace
# Mild protein calorie malnutrition of acute illness with sudden weight loss prior to admission, sudden decreased intake < 75% for > 5 days.
# Hypothyroidism
-TSH low, elevated T4
-Home Synthroid reduced from 88 mcg to 75 mcg
#DVT PPX - Lovenox
#Code Status - Full Code
D/w GI
D/W Family at bed side
Anticipated Discharge: 24 - 48 hours
Subjective/Interval History
-
Date of Service: July 16, 2024
Objective Data
-
Labs:
Laboratory Results
07/16/24 07/16/24
06:44 06:45
WBC 6.6
Hgb 11.9 L
Hct 34.2 L
Plt Count 211
PT 16.2 H
INR 1.25
Sodium 135
Potassium 3.4 L
Chloride 99
Carbon Dioxide 26
BUN 9
Creatinine 0.5 L
Glucose 118 H
Calcium 8.2 L
Total Bilirubin 17.1 H
AST 1038 H*
ALT 987 H*
Alkaline Phosphatase 198 H
Vital Signs:
Vital Signs
Temp Pulse Resp BP Pulse Ox
98.3 F 91 18 121/84 97
07/16/24 07:33 07/16/24 07:33 07/16/24 07:33 07/16/24 07:33 07/16/24 07:33
I&O
07/15/24 07/16/24 07/17/24
06:59 06:59 06:59
Intake Total 1020 / 1020 630 / 630
Balance 1020 / 1020 630 / 630
[2024-07-16] MEDS: PROTONIX 40 MG PO (12:08)
[2024-07-16] MEDS: DELTASONE 60 MG PO (12:08)
[2024-07-16] MEDS: KLOR-CON 20 MEQ PO (12:39)
--- NOTE | 2024-07-16 12:41 | CM ---
Addendum entered by EBENEZER Saini 07/16/24 13:39:
Awaiting biopsy results. Patient will still be able to return home, no needs.
Original Note:
Spoke with RN and attending. Bi
[2024-07-16 15:13] VITALS: BP 127/89
[2024-07-16] MEDS: LOVENOX SC (17:11)
[2024-07-16] MEDS: LOVENOX 40 MG SC (17:25)
[2024-07-16 23:15] VITALS: BP 123/76
[2024-07-17] MEDS: SYNTHROID 75 MCG PO (05:17)
[2024-07-17 06:42] LABS: Hematocrit 34.1 % (37.0-47.0); Hemoglobin 11.8 g/dL (12.0-16.0); Mean Corp Hgb Conc. 34.6 g/dL (33.0-37.0); Mean Corpuscular Hgb 31.3 pg (27.0-31.0); Mean Corpuscular Volume 90.5 fL (81.0-99.0); Mean Platelet Volume 12.1 fL (7.4-10.4); Platelet Count 231 10^3/uL (130-400); Red Blood Cell Count 3.77 10^6/uL (4.20-5.40); Red Cell Dist. Width 16.1 % (11.5-14.5)
[2024-07-17 07:03] LABS: INR 1.27; PT 16.4 Sec (11.4-14.6)
[2024-07-17 07:12] LABS: Albumin 3.4 g/dl (3.5-5.0); Alkaline Phosphatase 185 U/L (38-126); Blood Urea Nitrogen 8 mg/dl (7-17); Calcium 8.5 mg/dl (8.4-10.2); Carbon Dioxide 25 mmol/L (22-30); Chloride 102 mmol/L (98-107); Estimated Creatinine Clearance 104 ml/min; Glucose 124 mg/dl (70-99); Magnesium 2.1 mg/dl (1.6-2.3); Phosphorus 3.2 mg/dl (2.5-4.5); Sodium 136 mmol/L (135-145); Total Bilirubin 15.9 mg/dl (0.2-1.3); Total Protein 7.6 g/dl (6.3-8.2); eGFR > 60.00
[2024-07-17 07:18] LABS: ALT (SGPT) 858 U/L (0-35); AST (SGOT) 755 U/L (14-36)
[2024-07-17 07:52] VITALS: BP 120/82
[2024-07-17] MEDS: PROTONIX 40 MG PO (08:52)
[2024-07-17] MEDS: DELTASONE 60 MG PO (08:52)
[2024-07-17] MEDS: MIRALAX PO (08:52)
--- NOTE | 2024-07-17 12:01 | W.PN.HOSP.TC ---
Today's Communication/Plan
-
LFTs are improving
Continue steroids and follow LFTs tomorrow
Discharge planning per GI
Patient is aware that she will need continued follow-up as outpatient once discharged.
Assessment / Plan
Assessment / Plan
49 woman with acute episode of painless jaundice and transaminitis. Recent history of heavy Tylenol and ibuprofen use but stopped taking Tylenol 1 week ago and Tylenol levels were negative at admit. No ETOH, no gallstones. No evidence of
cirrhosis. No other meds.
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 No fulminant acute hepatocellular necrosis is not identified. Portal vessels and bile ducts are intact. Lobular and portal involvement by a dense lymphoblasts monocytic
inflammatory cell infiltrate with individual lobar hepatocyte apoptosis. Mild cholestatic changes are noted. No viral inclusions are identified. Findings are compatible with autoimmune hepatitis
Icterus
CVS: S1-S2 normal
Chest: CTA B/L
Abdomen: Soft, NT / Bowel sounds present
Extremities: No edema
PLAN:
# Liver injury - due to Autoimmune hepatitis
- Serology neg for hepatitis
- JCARLOS detected, anti-mitochondrial , F-actin IgG High, elevated IgG and negative viral serologies pointing to autoimmune hepatitis
- Trend LFTs slowly improving with steroids started
- Stopped all Tylenol and ibuprofen products
- Status post liver biopsy on 07/15/2024 showing autoimmune hepatitis
- With positive JCARLOS needs rheumatology opinion as well To rule out overlap syndrome as outpatient.
- Patient started on steroids-patient is aware that she may need this at least for a year or more.
-TPMT test already sent, to start additional treatment possibly in a couple of weeks, and slowly taper steroids.
-Will need weekly monitoring of IgG, LFTs, blood sugars
# Mild hypokalemia-replaced
# Mild protein calorie malnutrition of acute illness with sudden weight loss prior to admission, sudden decreased intake < 75% for > 5 days.
# Hypothyroidism
-TSH low, elevated T4
-Home Synthroid reduced from 88 mcg to 75 mcg
#DVT PPX - Lovenox
#Code Status - Full Code
Discussed with nursing
Hold Lovenox tonight as patient is complaining of heavy menstrual period
D/W Family at bed side
Anticipated Discharge: Within 24 hours
Subjective/Interval History
-
Date of Service: July 17, 2024
Objective Data
-
Labs:
Laboratory Results
07/17/24
05:56
WBC 9.0
Hgb 11.8 L
Hct 34.1 L
Plt Count 231
PT 16.4 H
INR 1.27
Sodium 136
Potassium 4.0
Chloride 102
Carbon Dioxide 25
BUN 8
Creatinine 0.5 L
Glucose 124 H
Calcium 8.5
Total Bilirubin 15.9 H
AST 755 H*
ALT 858 H*
Alkaline Phosphatase 185 H
Vital Signs:
Vital Signs
Temp Pulse Resp BP Pulse Ox
97.4 F 70 19 120/82 95
07/17/24 07:52 07/17/24 07:52 07/17/24 07:52 07/17/24 07:52 07/17/24 07:52
I&O
07/16/24 07/17/24 07/18/24
06:59 06:59 06:59
Intake Total 630 / 630 1440 / 1440
Balance 630 / 630 1440 / 1440
[2024-07-17] MEDS: COLACE 100 MG PO ×2 (12:28→20:25)
--- NOTE | 2024-07-17 13:53 | W.PN.GI.CBS2 ---
Today's Communication / Plan
-
Check labs tomorrow
Assessment / Plan
-
Impression: 49-year-old female with PMH of hypothyroidism s/p thyroidectomy on levothyroxine, intermittent dizziness and vertigo who presented to ED on 07/10 with RUQ discomfort, painless jaundice and elevated LFTs. Patient reports that she had
an RUQ discomfort about a month and a half ago and was evaluated with abdominal ultrasound with her PCP, which came back negative. Has symptoms was suspected to be musculoskeletal in origin and she was advised to use heat/ice with lidocaine as
needed and was also asked to take Tylenol/ibuprofen if needed. She also received flu vaccine during that visit. About 2 weeks ago, he developed a URI and later developed persistent nausea, dizziness potentially related to her history of vertigo
during weather changes. Her symptoms progressed to severe cough, nasal congestion, headaches for which she started taking pseudoephedrine/acetaminophen 2 pills every 6 hours for about 5 days and then switch to Advil cold and sinus which she took
last about a week ago. Did not take these 2 medications at the same time and denies taking any other lffk-kch-lhvgokg medications, or supplements. She reports that her boyfriend came down with cold around this time. She continues to have
abdominal discomfort with occasional nausea and vomiting. On 07/05, patient was seen by her PCP for vertigo and was prescribed ondansetron and meclizine which she did not take. This morning, her daughter noticed that she is slightly jaundiced
weakness assisted her visit to the ED. She denies any use of other OTC medications, supplements, history of IV drug use, mushroom exposure, alcohol use, muscle aches, sick contacts, recent travels, fever, chills.
Assessment/plan:
#Acute liver injury-mixed pattern (07/15/2024 total bilirubin 17.9, AST 1156, ALT 932, alk phos 179) (07/14/2024-AST 1224/ALT 917/alkaline phosphatase 186/bilirubin 16.9). Transaminitis trending down. Bilirubin remains elevated.,
Differential-autoimmune hepatitis versus infectious versus DILI.
Based on labs and biopsy this is acute severe autoimmune hepatitis (based on her jaundice)
Liver disease workup so far:
acute hepatitis panel negative.
CMV negative
EBV IgG is positive/ EBV IgM antibody is negative.
JCARLOS 1: 2560
JCARLOS/smooth muscle F actin antibody positive ( 45 )
Mitochondrial M2 antibody 7.5
Anti-smooth muscle antibody titer less than 1: 20
Endomysial IgA antibody titer less than 1: 10
antimitochondrial antibody negative.
Ceruloplasmin 23
Alpha 1 antitrypsin 187
IgA 222
IgG 2018 (H)
IgM 238 (H)
Iron 285
TIBC 356
Percent iron saturation 80
Tissue transglutaminase IgG (pending)
Tissue transglutaminase IgA (pending)
Anti-LK M1 antibody (pending)
Ultrasound abdomen with Doppler-IMPRESSION:
The left hepatic vein appears slightly diminutive in caliber, otherwise unremarkable ultrasound of the upper abdominal vasculature.
CT abdomen/pelvis-mild left within normal limits. Scattered subcentimeter hypodensity in the liver. Likely represent cysts or hemangiomas
Recommendations:
# Acute severe AIH (Type I) - + jaundice but fortunately her INR is less than 1.5. She has no hepatic encephalopathy and no prior liver disease
-- 07/16/2024 it was day 1 of 60 mg prednisone
-- Patient appropriately started on GI prophylaxis. She is aware she will need calcium with vitamin D as these high dose steroids are not good for her bone health
-- We also discussed infection risk which is high due to the high-dose prednisone
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
-- She does have Jose Juan's as well
-- Her clinical manifestations were significant fatigue fullness and jaundice
-- TPMT activity was sent and is pending. This will be important when potentially starting azathioprine
-- As long as her labs and INR are stable or improving tomorrow she can go home then will need labs weekly to check for biochemical response and cautiously reduce prednisone. Will need hepatology follow-up.
-- Fortunately she has no hepatic encephalopathy and does not need urgent liver transplant eval
--I discussed with Dr. Villegas with [facility] [place] today 07/17/2024. His office will contact her tomorrow for an urgent appointment which will be in [place]
Discussed with Dr. Villegas today at [facility]. Also long conversation with patient and her at bedside.
Total Time Spent with Patient (in minutes): 72
Subjective
Subjective
Date of Service: July 17, 2024
Objective
Data Reviewed
Laboratory Data:
Laboratory Results
07/17/24 05:56
07/17/24 05:56
Laboratory Results
PT 16.4 Sec (11.4-14.6) H 07/17/24 05:56
INR 1.27 07/17/24 05:56
Phosphorus 3.2 mg/dl (2.5-4.5) 07/17/24 05:56
Magnesium 2.1 mg/dl (1.6-2.3) 07/17/24 05:56
Total Bilirubin 15.9 mg/dl (0.2-1.3) H 07/17/24 05:56
AST 755 U/L (14-36) H* 07/17/24 05:56
ALT 858 U/L (0-35) H* 07/17/24 05:56
Alkaline Phosphatase 185 U/L (38-126) H 07/17/24 05:56
Lipase 33 U/L (23-300) 07/10/24 14:13
Vital Signs and I&O:
Vital Signs
Temp Pulse Resp BP Pulse Ox
97.4 F 70 19 120/82 95
07/17/24 07:52 07/17/24 07:52 07/17/24 07:52 07/17/24 07:52 07/17/24 07:52
I&O
07/16/24 07/17/24 07/18/24
06:59 06:59 06:59
Intake Total 630 / 630 1440 / 1440
Balance 630 / 630 1440 / 1440
[2024-07-17 15:36] VITALS: BP 129/92
--- NOTE | 2024-07-17 15:37 | PTCARENOTE ---
patient c/o saturating one lito pad, has menses. Dr. Groves holding Heparin, c/o constipation, refused Miralax, reports after having dose prior to today, she developed severe abd cramping with it with diarrhea. cooperative with taking Colace,
independent ambulating frequently in room and hallway, vss, will continue to monitor.
[2024-07-17 23:00] VITALS: BP 119/75
[2024-07-18 05:10] LABS: Complement C3 126 mg/dl (88-165)
[2024-07-18 05:11] LABS: IgG 2240 mg/dl (700-1600)
[2024-07-18] MEDS: SYNTHROID 75 MCG PO (06:34)
[2024-07-18 07:21] VITALS: BP 133/74
[2024-07-18 08:42] LABS: Hematocrit 33.9 % (37.0-47.0); Hemoglobin 11.8 g/dL (12.0-16.0); Mean Corp Hgb Conc. 34.8 g/dL (33.0-37.0); Mean Corpuscular Hgb 31.4 pg (27.0-31.0); Mean Corpuscular Volume 90.2 fL (81.0-99.0); Mean Platelet Volume 11.8 fL (7.4-10.4); Platelet Count 255 10^3/uL (130-400); Red Blood Cell Count 3.76 10^6/uL (4.20-5.40); Red Cell Dist. Width 16.7 % (11.5-14.5); White Blood Cell Count 12.4 10^3/uL (4.8-10.8)
[2024-07-18 08:43] LABS: PT 15.7 Sec (11.4-14.6)
[2024-07-18] MEDS: PROTONIX 40 MG PO (09:25)
[2024-07-18] MEDS: COLACE 100 MG PO (09:25)
[2024-07-18] MEDS: DELTASONE 60 MG PO (09:25)
[2024-07-18] MEDS: MIRALAX PO (09:26)
[2024-07-18 09:32] LABS: ALT (SGPT) 713 U/L (0-35); AST (SGOT) 615 U/L (14-36); Albumin 3.3 g/dl (3.5-5.0); Alkaline Phosphatase 205 U/L (38-126); Blood Urea Nitrogen 17 mg/dl (7-17); Calcium 8.6 mg/dl (8.4-10.2); Carbon Dioxide 27 mmol/L (22-30); Chloride 102 mmol/L (98-107); Estimated Creatinine Clearance 104 ml/min; Glucose 90 mg/dl (70-99); Magnesium 2.1 mg/dl (1.6-2.3); Potassium 3.7 mmol/L (3.5-5.1); Sodium 136 mmol/L (135-145); Total Bilirubin 12.3 mg/dl (0.2-1.3); Total Protein 7.2 g/dl (6.3-8.2); eGFR > 60.00
--- NOTE | 2024-07-18 10:55 | W.PN.GI.CBS2 ---
Today's Communication / Plan
-
see above for plan
LFT improving, feeling better and noted less jaundice
sent message to arrange GI follow up and weekly labs given to patient
reviewed with Dr. Veronica.
Assessment / Plan
-
Impression: 49-year-old female with PMH of hypothyroidism s/p thyroidectomy on levothyroxine, intermittent dizziness and vertigo who presented to ED on 07/10 with RUQ discomfort, painless jaundice and elevated LFTs. Patient reports that she had
an RUQ discomfort about a month and a half ago and was evaluated with abdominal ultrasound with her PCP, which came back negative. Has symptoms was suspected to be musculoskeletal in origin and she was advised to use heat/ice with lidocaine as
needed and was also asked to take Tylenol/ibuprofen if needed. She also received flu vaccine during that visit. About 2 weeks ago, he developed a URI and later developed persistent nausea, dizziness potentially related to her history of vertigo
during weather changes. Her symptoms progressed to severe cough, nasal congestion, headaches for which she started taking pseudoephedrine/acetaminophen 2 pills every 6 hours for about 5 days and then switch to Advil cold and sinus which she took
last about a week ago. Did not take these 2 medications at the same time and denies taking any other wchp-lpp-wipxauj medications, or supplements. She reports that her boyfriend came down with cold around this time. She continues to have
abdominal discomfort with occasional nausea and vomiting. On 07/05, patient was seen by her PCP for vertigo and was prescribed ondansetron and meclizine which she did not take. She now presents with jaundice, weakness on admission with marked
elevated LFT's. She denies any use of other OTC medications, supplements, history of IV drug use, mushroom exposure, alcohol use, muscle aches, sick contacts, recent travels, fever, chills.
Laboratory Tests
07/14/24 07/15/24 07/16/24
10:01 07:59 06:44
INR 1.19 1.25
Total Bilirubin 17.9 H
AST 1156 H*
ALT 932 H*
Alkaline Phosphatase 179 H
07/16/24 07/17/24 07/18/24
06:45 05:56 07:57
INR 1.27 1.20
Total Bilirubin 17.1 H 15.9 H 12.3 H
AST 1038 H* 755 H* 615 H*
ALT 987 H* 858 H* 713 H*
Alkaline Phosphatase 198 H 185 H 205 H
Assessment/plan:
#Acute liver injury-mixed pattern (07/15/2024 total bilirubin 17.9, AST 1156, ALT 932, alk phos 179) (07/14/2024-AST 1224/ALT 917/alkaline phosphatase 186/bilirubin 16.9). Labs trending down. await final path-report - preliminary c/w autoimmune
hepatitis
Based on labs and biopsy this is acute severe autoimmune hepatitis (based on her jaundice)
Liver disease workup so far:
acute hepatitis panel negative
CMV negative
EBV IgG is positive/ EBV IgM antibody is negative.
JCARLOS 1: 2560
JCARLOS/smooth muscle F actin antibody positive ( 45 )
Mitochondrial M2 antibody 7.5
Anti-smooth muscle antibody titer less than 1: 20
Endomysial IgA antibody titer less than 1: 10
antimitochondrial antibody negative.
Ceruloplasmin 23
Alpha 1 antitrypsin 187
IgA 222
IgG 2018 (H)
IgM 238 (H)
Iron 285
TIBC 356
Percent iron saturation 80
Tissue transglutaminase IgG (pending)
Tissue transglutaminase IgA (pending)
Anti-LK M1 antibody (1)
Ultrasound abdomen with Doppler-IMPRESSION:
The left hepatic vein appears slightly diminutive in caliber, otherwise unremarkable ultrasound of the upper abdominal vasculature.
CT abdomen/pelvis-mild left within normal limits. Scattered subcentimeter hypodensity in the liver. Likely represent cysts or hemangiomas
Recommendations:
# Acute severe AIH (Type I) - + jaundice but fortunately her INR cont to be less than 1.5. She has no hepatic encephalopathy and no prior liver disease
-- 07/16/2024 it was day 1 of 60 mg prednisone (risk of infection reviewed with patient)
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
-- remains awake and alert no signs of HE or decompensation
-- I left slips for weekly INR and comp met panel x 4 weeks
-- Patient appropriately started on GI prophylaxis. She is aware she will need calcium with vitamin D as these high dose steroids are not good for her bone health
-- TPMT activity was sent and is pending. This will be important when potentially starting azathioprine
-- I sent message to GI office to arrange local follow up and pt to follow up with Dr. Villegas from hepatology at [place].-- Dr. Maynard reviewed with Dr. Villegas 07/17 and his office to call pt. Pt will reach out if she does not hear from his office.
-family updated
# hx Jose Juan's
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
Subjective
Subjective
Date of Service: July 18, 2024
on regular diet, no stool
Objective
Data Reviewed
Laboratory Data:
Laboratory Results
07/18/24 07:57
07/18/24 07:57
Laboratory Results
PT 15.7 Sec (11.4-14.6) H 07/18/24 07:57
INR 1.20 07/18/24 07:57
Phosphorus 4.0 mg/dl (2.5-4.5) 07/18/24 07:57
Magnesium 2.1 mg/dl (1.6-2.3) 07/18/24 07:57
Total Bilirubin 12.3 mg/dl (0.2-1.3) H 07/18/24 07:57
AST 615 U/L (14-36) H* 07/18/24 07:57
ALT 713 U/L (0-35) H* 07/18/24 07:57
Alkaline Phosphatase 205 U/L (38-126) H 07/18/24 07:57
Lipase 33 U/L (23-300) 07/10/24 14:13
Vital Signs and I&O:
Vital Signs
Temp Pulse Resp BP Pulse Ox
98.0 F 67 18 133/74 98
07/18/24 07:21 07/18/24 07:21 07/18/24 07:21 07/18/24 07:21 07/18/24 09:00
I&O
07/17/24 07/18/24 07/19/24
06:59 06:59 06:59
Intake Total 1440 / 1440 1320 / 1320
Balance 1440 / 1440 1320 / 1320
Physical Exam
Physical Exam
HEENT: Moist mucous membranes and Other (jaundice )
Cardiology: Normal Sinus Rhythm
Pulmonary: Clear
GI: Soft, Non Distended and Non Tender
Extremities: Other (chronic annular rash)
Neuro: Non Focal
--- NOTE | 2024-07-18 11:34 | CM ---
Spoke with patient and her significant other who was at bedside. Patient stated that she is feeling better and would like to return home. She is hopeful for d/c today. Significant other confirmed that he will transport home.
Plan: Case management will continue to follow and assist with discharge planning. Home when stable.
--- NOTE | 2024-07-18 11:56 | W.PN.HOSP.TC ---
Today's Communication/Plan
-
Discharge
Assessment / Plan
Assessment / Plan
49 woman with acute episode of painless jaundice and transaminitis. Recent history of heavy Tylenol and ibuprofen use but stopped taking Tylenol 1 week ago and Tylenol levels were negative at admit. No ETOH, no gallstones. No evidence of
cirrhosis. No other meds.
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 No fulminant acute hepatocellular necrosis is not identified. Portal vessels and bile ducts are intact. Lobular and portal involvement by a dense lymphoblasts monocytic
inflammatory cell infiltrate with individual lobar hepatocyte apoptosis. Mild cholestatic changes are noted. No viral inclusions are identified. Findings are compatible with autoimmune hepatitis
Icterus
CVS: S1-S2 normal
Chest: CTA B/L
Abdomen: Soft, NT / Bowel sounds present
Extremities: No edema
mild chronic rash on skin from Jose Juan
PLAN:
# Liver injury - due to Autoimmune hepatitis
- Serology neg for hepatitis
- JCARLOS detected, anti-mitochondrial , F-actin IgG High, elevated IgG and negative viral serologies pointing to autoimmune hepatitis
- Trend LFTs slowly improving with steroids started
- Stopped all Tylenol and ibuprofen products
- Status post liver biopsy on 07/15/2024 showing autoimmune hepatitis
- With positive JCARLOS needs rheumatology opinion as well To rule out overlap syndrome as outpatient.
- Patient started on steroids-patient is aware that she may need this at least for a year or more.
-TPMT test already sent, to start additional treatment possibly in a couple of weeks, and slowly taper steroids.
-Will need weekly monitoring of IgG, LFTs, blood sugars
# Mild hypokalemia-replaced
# Mild protein calorie malnutrition of acute illness with sudden weight loss prior to admission, sudden decreased intake < 75% for > 5 days.
# Hypothyroidism
-TSH low, elevated T4
-Home Synthroid reduced from 88 mcg to 75 mcg
# Leucocytosis from steroids
#DVT PPX - Lovenox
#Code Status - Full Code
Discussed with nursing
D/W [facility] for discharge
D/W Family at bed side
Patient is aware about follow-up. I did discuss [facility] patient's name and phone number to rheumatology today. [facility] called and given appointment for August 13. Patient also follow-[facility] with [facility] Dr. Villegas
She can also follow-up with local GI.
Weekly blood tests discussed with the patient
Total discharge time 36 minutes
Anticipated Discharge: Today
Subjective/Interval History
-
Date of Service: July 18, 2024
Objective Data
-
Labs:
Laboratory Results
07/18/24
07:57
WBC 12.4 H
Hgb 11.8 L
Hct 33.9 L
Plt Count 255
PT 15.7 H
INR 1.20
Sodium 136
Potassium 3.7
Chloride 102
Carbon Dioxide 27
BUN 17
Creatinine 0.6
Glucose 90
Calcium 8.6
Total Bilirubin 12.3 H
AST 615 H*
ALT 713 H*
Alkaline Phosphatase 205 H
Vital Signs:
Vital Signs
Temp Pulse Resp BP Pulse Ox
98.0 F 67 18 133/74 98
07/18/24 07:21 07/18/24 07:21 07/18/24 07:21 07/18/24 07:21 07/18/24 09:00
I&O
07/17/24 07/18/24 07/19/24
06:59 06:59 06:59
Intake Total 1440 / 1440 1320 / 1320
Balance 1440 / 1440 1320 / 1320
--- NOTE | 2024-07-18 12:18 | W.DS.TRANS ---
Addendum entered and electronically signed by Venancio Groves MD 07/18/24 16:28:
Dictation- [id number]
Original Note:
DC Summary - [employer]
-
Discharge Instructions:
Discharge Diagnosis/Procedures Autoimmune hepatitis
Jose Juan thyroiditis
Diet As tolerated
Activity As tolerated
Driving Restrictions As prior to admission
Blood Work CMP and INR weekly see slips . Thyroid function
tests in 6 weeks
Others Tests DEXA scan
Instructions:
Stand-Alone Forms:
Changes to Home Medications: Yes
Discharge Medications:
DC Medications w/original date entered in mojio
calcium 500 mg (as carbonate)-vitamin D3 10 mcg (400 unit) tablet (Calcium 500 + D) 1 tab PO BID Supplement #60 tabs 07/18/24
levothyroxine 75 mcg tablet 75 mcg PO DAILY @ 0600 Thyroid #30 tabs 07/18/24
pantoprazole 40 mg tablet,delayed release 40 mg PO DAILY Gastrointestinal issue #30 tabs 07/18/24
prednisone 20 mg tablet 60 mg (3 x 20 mg) PO DAILY Liver issues #90 tabs 07/18/24
Home Medication Changes
Synthroid dose changed
Protonix and prednisone are new
Calcium is new
Pending Results: Yes
--- NOTE | 2024-07-18 14:00 | PTCARENOTE ---
patient ordered knee high scd's. [employer] called for pump and out of pumps. [employer] employee verbalized that he would bring pump up when one is available. patient is ambulating frequently in room and hallway. Dr. Groves made aware.
[2024-07-18 14:22] VITALS: BP 111/72
[2024-07-18 16:06] LABS: Protein/creatinine Ratio 0.1; Urine Protein 14 mg/dl
[2024-07-18 17:18] LABS: Folate 9.9 ng/ml (2.76-20)
[2024-07-18 22:39] LABS: ds-DNA Ab, IgG Reflex To Titer >300 IU (0-24)
[2024-07-18 23:13] LABS: SSA 52 (Ro)(ENA) Ab, IgG 3 AU/mL (0-40); SSA 60 (Ro)(ENA) Ab, IgG 2 AU/mL (0-40); SSB (La)(ENA) Ab, IgG 3 AU/mL (0-40)
[2024-07-19 08:35] LABS: Smith/RNP (ENA), IgG 4 Units (0-19)
[2024-07-19 09:34] LABS: Quantiferon Mitogen minus NIL 0.67 IU/mL; Quantiferon NIL 0.01 IU/mL; Quantiferon TB Gold Plus Negative (Negative)
[2024-07-19 14:58] LABS: tTG IgA Antibody 105.8 EU/ml (0-19); tTG IgG Antibody 44.8 EU/ml (0-19)
[2024-07-19 18:24] LABS: Herpes Virus 6 (HHV-6) Ab, IgG 1:40
== END 2024-07-18 17:00 | disposition home or self-care (01) | DRG 442 ==
LOC: 3 WEST ACU 19:48
PROVIDERS: Emergency Medicine; Internal Medicine; Internal Medicine Gastroenterology; Nurse Practitioner; Radiology Vascular & Interventional Radiology; Student in an Organized Health Care Education/Training Program; ADMITTING PHYSICIAN Internal Medicine; ATTENDING PHYSICIAN Hospitalist; EMERGENCY PHYSICIAN Student in an Organized Health Care Education/Training Program; OTHER PHYSICIAN Internal Medicine; PRIMARYCARE PHYSICIAN Internal Medicine
PROC: 0FD03ZX Extraction of Liver, Percutaneous Approach, Diagnostic (ICD-10-PCS; 2024-07-16)
DX: K75.4 Autoimmune hepatitis (principal); E44.1 Mild protein-calorie malnutrition; E89.0 Postprocedural hypothyroidism; Z68.27 Body mass index [BMI] 27.0-27.9, adult
CPT/HCPCS: 88307; 47000; 74177; 76942; 80053; 80061; 80076; 80143; 80306; 81003; 81015; 82103; 82140; 82248; 82390; 82570; 82728; 82746; 82784; 83516; 83540; 83550; 83690; 83735; 84100; 84156; 84439; 84443; 84703; 85025; 85027; 85610; 85652; 86015; 86038; 86039; 86140; 86160; 86225; 86231; 86235; 86256; 86376; 86381; 86480; 86645; 86663; 86664; 86665; 86705; 86706; 86709; 86787; 86790; 86803; 87086; 87340; 88313; 88341; 88342; 93975; 96374; 99152; 99153; 99285; Q9967

== ENCOUNTER 2025-03-27 06:24 | Day surgery (SDC) | payer OTHER, SELFPAY | END 2025-03-27 11:25 | disposition home or self-care (01) | LOC: GI 06:24 | PROVIDERS: ATTENDING PHYSICIAN Internal Medicine | DX: Z12.11 Encounter for screening for malignant neoplasm of colon (principal); R76.8 Other specified abnormal immunological findings in serum; K44.9 Diaphragmatic hernia without obstruction or gangrene; K63.9 Disease of intestine, unspecified | CPT/HCPCS: 43239; G0121; 88305; 88342 ==

== ENCOUNTER → 2025-05-28 06:57 | Outpatient (REF) | payer OTHER, SELFPAY | LOC: RAD 06:57 | PROVIDERS: ATTENDING PHYSICIAN Internal Medicine Transplant Hepatology; FAMILY PHYSICIAN Internal Medicine | DX: R10.11 Right upper quadrant pain (principal); K75.4 Autoimmune hepatitis | CPT/HCPCS: 74170; Q9967 ==

== ENCOUNTER → 2025-07-02 06:58 | Outpatient (REF) | payer OTHER, SELFPAY | LOC: HWRAD 06:58 | PROVIDERS: ATTENDING PHYSICIAN Nurse Practitioner; FAMILY PHYSICIAN Internal Medicine | DX: K75.4 Autoimmune hepatitis (principal) | CPT/HCPCS: 77080 ==